=== PATIENT | male | born 1955 | race Caucasian/White ===

== ENCOUNTER 2019-08-20 12:36 | Outpatient (CLI) | payer MEDICARE, OTHER, SELFPAY ==
--- NOTE | 2019-08-20 12:52 | XR_ITS ---
WS: [id number] KNEE RIGHT TECHNIQUE: 3 views of the right knee CLINICAL INFORMATION: PAIN IN RT KNEE COMPARISON: None. FINDINGS: Right knee is normal in appearance. No evidence of acute fracture dislocation. Small suprapatellar ef fusion. Patella is normal. XR/XR knee RT 3V* [id number] IMPRESSION: Small suprapatellar effusion. No acute fractures.
== END 2019-08-20 12:37 | disposition home or self-care (01) ==
LOC: RADOUTREAD 12:42
PROVIDERS: Family Provider Family Medicine; PCP Family Medicine; Visit Provider Nurse Practitioner Family
DX: M25.561 Pain in right knee (principal); M25.461 Effusion, right knee
CPT/HCPCS: 73562

== ENCOUNTER 2020-02-09 14:12 | Outpatient (CLI) | payer MEDICARE, SELFPAY ==
--- NOTE | 2020-02-09 14:16 | XR_ITS ---
WS: [id number] CERVICAL SPINE TECHNIQUE: 3 views of the cervical spine CLINICAL INFORMATION: FALL COMPARISON: None. FINDINGS: Straightening of the normal cervical lordosis with slight reversal. Anterior fusion mass C4-C6 appear s solid. Slight anterolisthesis C3 on C4. Normal C1-2 articulation. XR/XR cervical spine 3V* [id number] IMPRESSION: Straightening of the normal cervical lordosis with solid-appearing anterior fus ion mass C4-C6.
== END 2020-02-09 14:13 | disposition home or self-care (01) ==
LOC: RADWPI 14:15
PROVIDERS: Family Provider Family Medicine; PCP Family Medicine; Visit Provider Nurse Practitioner Family
DX: Z98.1 Arthrodesis status (principal); W19.XXXA Unspecified fall, initial encounter
CPT/HCPCS: 72040

== ENCOUNTER 2020-04-29 04:43 | Emergency (ER) | payer MEDICARE, SELFPAY ==
[2020-04-29] VITALS (10 sets, daily range): BP systolic 117–135; BP diastolic 66–87; PULSE 43–65; RESP 10–17; TEMP 36.6; O2SAT 95–99; BMI 32.1
--- NOTE | 2020-04-29 04:45 | XRR_ITS ---
PROCEDURE INFORMATION: Exam: XR Chest, 1 View Exam date and time: 04/29/2020 4:49 AM Age: 64 years old Clinical indication: Chest pain; Additional info: Chest pain x 1 hour TECHNIQUE: Imaging protocol: XR of the chest Views: 1 view. COMPARISON: CT chest wo con [id number] 03/19/2019 10:07 AM FINDINGS: Tubes, catheters and devices: Neurostimulator wires project on the lower thoracic spine. Lungs: There is minimal fibrosis in the left costophrenic angle but otherwise lungs are clear.. No consolidation. Pleural space: Unremarkable. No pleural effusion. No pneumothorax. Heart/Mediastinum: Unremarkable. No cardiomegaly. Bones/joints: Unremarkable. XR/XR chest 1V portable [id number] IMPRESSION: No acute abnormality.
--- NOTE | 2020-04-29 04:45 | ECG_ITS ---
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 Measurements Intervals [place] Rate: 62 P: 51 VA: 180 QRS: 7 QRSD: 102 T: 10 QT: 399 QTc: 407 Interpretive Statements SINUS RHYTHM Compared to ECG 07/17/2014 15:23:39 No significant changes Electronically Signed On 04-29-2020 20:28:40 CDT by Roberto Carlos Maier M.D. [id number]
--- NOTE | 2020-04-29 04:59 | ED_ITS ---
Documented by User: Frantz Mendosa MD 04/29/20 05:51 HPI - Chest Pain General: Chief Complaint: Abdominal Pain Stated Complaint: cp Time Seen by Provider: 04/29/20 04:46 Source: patient Mode of arrival: ambulatory Limitations: no limitations History of Present Illness: HPI narrative: 64-year-old male states that he woke up 1 hour ago with sharp left-sided chest pain. States pain is very sharp in nature and seems to be worse with movement. He took pain pill at home states the pain is improving and is currently a 3 out of 10. Denies any vomiting or diarrhea. Denies any shortness of breath. Patient denies any fever. Denies any recent injury. MD complaint: chest pain Associated symptoms: Deny abdominal pain, dyspnea, fever(s), nausea or vomiting Review of Systems Const: Denies: fever(s), chills, body aches or change in appetite Eyes: Denies: blurry vision or eye discomfort ENMT: Denies: throat pain or dental pain Card: Reports: chest pain Resp: Denies: dyspnea GI: Denies: abdominal pain, nausea, vomiting or diarrhea : Denies: dysuria Musc: Denies: neck pain or back pain Skin/Breast: Denies: rash Neuro: Denies: headache(s) Psych: Denies: depression Kieran/Lymph: Denies: easy bruising All/Imm: Denies: urticaria PFSH ED PFSH: Family History (Updated 07/29/19 @ 09:59 by Mckayla Castillo LPN) Father CAD (coronary artery disease) Osteoarthritis Mother Cancer pancreatic Osteoarthritis Social History (Updated 07/29/19 @ 09:59 by Mckayla Castillo LPN) Smoking and tobacco status: former smoker Alcohol intake: never Physical Exam Const: COMMON NORMALS: no acute distress, patient oriented x3 and healthy appearing HENMT: COMMON NORMALS: normocephalic and atraumatic HEAD & SCALP: normocephalic and atraumatic Eye: COMMON NORMALS: Equal, round and reactive pupils present and EOMs intact bilaterally PUPIL: Yes Equal, round and reactive pupils present Neck/C-Spine: COMMON NORMALS: full ROM and supple Chest: COMMONS NORMALS: normal inspection of the chest and normal palpation of entire chest wall Resp: COMMON NORMALS: normal respiratory effort, No retractions, No use of accessory muscles and clear to auscultation bilaterally AUSCULTATION: clear to auscultation bilaterally Cardio: COMMON NORMALS: regular rate, regular rhythm and No murmurs present (Cardio) RATE: regular rate RHYTHM: regular rhythm GI: COMMON NORMALS: Normal to inspection, nondistended, normoactive bowel sounds present, Soft to palpation, non-tender and no masses PALPATION: Yes Soft to palpation Extremity: COMMON NORMALS: normal to inspection and full ROM Neuro: COMMON NORMALS: patient oriented x3, moves all extremities and no focal motor deficits Psych: COMMON NORMALS: mental status grossly normal, Normal thought process present and cooperative THOUGHT PROCESS: Normal thought process present Skin: COMMON NORMALS: no rashes or lesions noted and no wounds GENERAL SKIN EXAM: no rashes or lesions noted Course Vital Signs: Vital signs: Vital Signs Temperature 97.9 F 04/29/20 04:49 Pulse Rate 46 L 04/29/20 08:00 Respiratory Rate 15 04/29/20 08:00 Blood Pressure 131/66 04/29/20 08:00 Pulse Oximetry 99 04/29/20 08:00 MDM - Chest Pain MDM Narrative: Medical decision making narrative: 64-year-old male presents here with left-sided chest pain. Will get troponins, D-dimer and EKG. Patient's chest x-ray here is negative. Initial EKG is negative as well. Patient's care turned over to Dr. Roger at this time. Lab Data: Labs: Lab Results 04/29/20 04/29/20 04/29/20 Range/Units 05:05 05:05 05:05 WBC 4.2 (4.0-10.0) 10^3/ uL RBC 4.80 (4.1-5.3) 10^6/u L Hgb 14.5 (11.7-16.6) g/dL Hct 42.9 (42.0-52.0) % MCV 89.4 (80-94) fL MCH 30.2 (28.0-34.0) pg MCHC 33.8 (30.0-36.0) g/dL RDW 12.4 (12.1-15.1) % Plt Count 165 (130-400) 10^3/c mm MPV 10.0 (7.4-10.4) fL Neut % (Auto) 32.1 % Lymph % (Auto) 50.0 % [place] % (Auto) 12.4 % Eos % (Auto) 3.8 % Baso % (Auto) 1.7 % Neut # (Auto) 1.35 L (1.8-7.7) 10^3/u L Lymph # (Auto) 2.1 (0.8-4.8) 10^3/u L [place] # (Auto) 0.5 (0.2-0.9) 10^3/u L Eos # (Auto) 0.2 (0.0-0.8) 10^3/u L Baso # (Auto) 0.1 (0.0-0.1) 10^3/u L Nucleated RBC % (a uto) 0 % Nucleated RBCs # 0.0 /100WBC D-Dimer (0-0.59) ug/mIFE U Sodium 139 (136-145) mmol/L Potassium 4.4 (3.5-5.1) mmol/L Chloride 105 (98-107) mmol/L Carbon Dioxide 25 (22-29) mmol/L Anion Gap 13.4 (5-19) BUN 18 (8-23) mg/dL Creatinine 1.0 (0.7-1.2) mg/dL GFR Calculation 75.7 L (90-130) mL/min Glucose 103 (65-115) mg/dL Calculated Osmolal ity 290 (285-295) mOsm/k g Calcium 9.3 (8.5-10.5) mg/dL Total Bilirubin 0.6 (0.15-1.2) mg/dL AST 37 (0-40) U/L ALT 41 (0-41) U/L Alkaline Phosphata se 97 (40-130) IU/L Troponin T Baselin e 13 (0-15) ng/L Troponin T 120 Min [place] (0-15) ng/L Delta Troponin T (0-10) ABS# Total Protein 6.2 L (6.6-8.7) g/dL Albumin 4.4 (3.5-5.2) g/dL Globulin 1.8 (1.3-4.6) g/dL Lipase 41 (13-60) U/L Urine Color (Yellow) Urine Appearance (CLEAR) Urine pH (5-7) Ur Specific Gravit y (1.005-1.030) Urine Protein (Negative) Urine Glucose (UA) (Normal) Urine Ketones (Negative) Urine Blood (Negative) Urine Nitrate (Negative) Urine Bilirubin (Negative) Urine Urobilinogen (Negative) mg/dL Ur Leukocyte Dalila ase (Negative) 04/29/20 04/29/20 04/29/20 Range/Units 05:05 06:51 07:24 WBC (4.0-10.0) 10^3/ uL RBC (4.1-5.3) 10^6/u L Hgb (11.7-16.6) g/dL Hct (42.0-52.0) % MCV (80-94) fL MCH (28.0-34.0) pg MCHC (30.0-36.0) g/dL RDW (12.1-15.1) % Plt Count (130-400) 10^3/c mm MPV (7.4-10.4) fL Neut % (Auto) % Lymph % (Auto) % [place] % (Auto) % Eos % (Auto) % Baso % (Auto) % Neut # (Auto) (1.8-7.7) 10^3/u L Lymph # (Auto) (0.8-4.8) 10^3/u L [place] # (Auto) (0.2-0.9) 10^3/u L Eos # (Auto) (0.0-0.8) 10^3/u L Baso # (Auto) (0.0-0.1) 10^3/u L Nucleated RBC % (a uto) % Nucleated RBCs # /100WBC D-Dimer <= 0.27 (0-0.59) ug/mIFE U Sodium (136-145) mmol/L Potassium (3.5-5.1) mmol/L Chloride (98-107) mmol/L Carbon Dioxide (22-29) mmol/L Anion Gap (5-19) BUN (8-23) mg/dL Creatinine (0.7-1.2) mg/dL GFR Calculation (90-130) mL/min Glucose (65-115) mg/dL Calculated Osmolal ity (285-295) mOsm/k g Calcium (8.5-10.5) mg/dL Total Bilirubin (0.15-1.2) mg/dL AST (0-40) U/L ALT (0-41) U/L Alkaline Phosphata se (40-130) IU/L Troponin T Baselin e (0-15) ng/L Troponin T 120 Min [place] 12.81 (0-15) ng/L Delta Troponin T -0.19 L (0-10) ABS# Total Protein (6.6-8.7) g/dL Albumin (3.5-5.2) g/dL Globulin (1.3-4.6) g/dL Lipase (13-60) U/L Urine Color Yellow (Yellow) Urine Appearance Clear (CLEAR) Urine pH 5.0 (5-7) Ur Specific Gravit y 1.010 (1.005-1.030) Urine Protein Neg (Negative) Urine Glucose (UA) Norm (Normal) Urine Ketones Negative (Negative) Urine Blood Neg (Negative) Urine Nitrate Negative (Negative) Urine Bilirubin Neg (Negative) Urine Urobilinogen Norm (Negative) mg/dL Ur Leukocyte Dalila ase Negative (Negative) Imaging Data^: CXR: Attestation: I personally reviewed and interpreted this imaging study as follows: My impression: no acute abnormality EKG Data^: EKG 1: Attestation: I personally reviewed and interpreted this EKG as follows: EKG interpretation date: 04/29/20 EKG interpretation time: 04:59 Interpretation: nsr hr [address] or t wave abnormalities qrs 12 qtc 404 Discharge Plan Discharge Patient Disposition: Home Clinical Impression: Chest pain Qualifiers: Chest pain type: unspecified Qualified Code(s): R07.9 - Chest pain, unspecified Condition: Stable Prescriptions: New naproxen 250 mg tablet 500 mg PO BID PRN (Reason: pain) Qty: 20 RF: 0 No Action hydrocodone-acetaminophen 10-325 mg tablet 1 tab PO Q8H PRNRF: 0 celecoxib [Celebrex] 100 mg capsule 100 mg PO BID RF: 0 gabapentin 800 mg tablet 800 mg PO TID RF: 0 simvastatin 40 mg tablet 40 mg PO QDAY RF: 0 metformin 500 mg tablet 500 mg PO QDAY RF: 0 furosemide [Lasix] 20 mg tablet 10 mg PO QAM RF: 0 potassium chloride 10 mEq capsule, extended release 10 meq PO BID RF: 0 albuterol sulfate [ProAir HFA] 90 mcg/actuation HFA aerosol inhaler 2 puff INHALATION Q6H PRNRF: 0 metoprolol tartrate 50 mg tablet 50 mg PO BID RF: 0 fenofibrate nanocrystallized [Tricor] 145 mg tablet 145 mg PO QDAY RF: 0 nitroglycerin [Nitrostat] 0.4 mg tablet, sublingual 0.4 mg SUBLINGUAL Q5M PRNRF: 0 aspirin 81 mg tablet,chewable 81 mg PO QDAY RF: 0 duloxetine 60 mg capsule,delayed release(DR/EC) 60 mg PO QDAY RF: 0 diphenhydramine HCl 50 mg capsule 50 mg PO Q6H PRNRF: 0 cinnamon bark 500 mg capsule 500 mg PO QDAY RF: 0 Natural Herbal Diuretic Tablet PO QDAY RF: 0 Discharge Orders: Discharge Order (Routine); Ordered 04/29/20 Ordered By: Jesika Zuniga Referrals: Kishore Altamirano MD [Primary Care Provider] - 1-3 days Discharge Diet: Advance as tolerated Discharge Activity: Increase activity as tolerated Patient Instructions: Chest Pain (ED) Activity Restrictions/Additional Instructions: Please return to the ER immediately for any of the signs or symptoms listed on your discharge instruction sheets, worsening/changing of your symptoms, you are not getting better as quickly as expected, or for ANY other cause or concerns. I have recommended and offered to admit you to the hospital for further evaluation and care to definitively rule out your heart as a cause for your pain but you have declined. Of course any heart problem can be life-threatening so if you change your mind, your symptoms return, you become short of breath with exertion or develop pain at rest, you become sweaty for no reason or you simply change her mind you are more than welcome to return here to the ER at any time for further evaluation and care. The hospitalist case management department will contact you about a follow-up appointment with Dr. Altamirano and for an outpatient stress test. Take the medications I have given you for pain and stop your celecoxib until your pain has resolved and when she has stopped taking the medicine I have given you you may resume your celecoxib. Stand Alone Forms: Work/School Release Sign Out Sign Out Data: Patient Sign Out occurred on 04/29/20 at 06:11. Patient's care was discussed, and care was transferred from to Jesika Zuniga. Coding Level of Care Code ED Border Guard for Chg Fwd Exam Comprehensive Documented by User: Jesika Zuniga 04/29/20 08:16 HPI - Chest Pain General: Chief Complaint: Abdominal Pain Stated Complaint: cp Time Seen by Provider: 04/29/20 04:46 PFSH ED PFSH: Family History (Updated 07/29/19 @ 09:59 by Mckayla Castillo LPN) Father CAD (coronary artery disease) Osteoarthritis Mother Cancer pancreatic Osteoarthritis Social History (Updated 07/29/19 @ 09:59 by Mckayla Castillo LPN) Smoking and tobacco status: former smoker Alcohol intake: never Course Vital Signs: Vital signs: Vital Signs Temperature 97.9 F 04/29/20 04:49 Pulse Rate 46 L 04/29/20 08:00 Respiratory Rate 15 04/29/20 08:00 Blood Pressure 131/66 04/29/20 08:00 Pulse Oximetry 99 04/29/20 08:00 MDM - Chest Pain MDM Narrative: Medical decision making narrative: 0630 -Case inherited by me at change of shift from Dr. Mendosa. Please see his note for his history, p hysical exam and medical decision-making notes. Patient states that he has had intermittent sharp left-sided chest pain for about 1 week. Pain is felt in the left upper quadrant and left lower anterior and lateral chest. He says the pain is elicited by movements and in certain position she will have this grabbing type pain that radiates around to his left shoulder blade. He states this feels like a sharp pain that lasts anywhere from 2 minutes up to 10 minutes. Eunice's pain was more intense and lasted approximately 30 minutes. He is unaware of any alleviating factors other than just rest and with that the pain will resolve. He denies any chest pressure, tightness, nausea vomiting, diaphoresis or shortness of breath. He denies any cough or fever. Patient states he has had similar pains in the past but they have always resolved and not been as frequent as it has been in the past week. Patient has a history of hypertension, hyperlipidemia, diabetes, osteoarthritis and chronic low back pain. Currently patient has no pain. On exam the patient has a normal neurologic exam. His heart has a regular rate and rhythm by auscultation without murmur, gallop, rub, click or thrill. Is chest is not tender to palpation. His lungs are clear to auscultation bilaterally without wheeze or rhonchi. Abdomen is soft nontender without mass organomegaly. There is no CVA tenderness. His first EKG has been performed and is normal to second EKG is unchanged and normal. Chest x-ray is unremarkable. His lab work is unremarkable including a normal initial troponin. CT of the chest/abdomen pelvis is pending at this time. Per my calculation the patient has a HEART Score of 3 at this time. 0813 -patient's repeat troponin is still within normal range and has gone down. He is no longer having any chest discomfort. I again shared with him his risk of this being his heart but he declines admission. He does not feel as though this is his heart but something along his rib which I tend to agree with him. Nonetheless I still explained to him the possibilities of a heart problem and the risks of a possible bad outcome or even if this is missed but he still declines and wants to go home. He has rescinded his mind and decided that he would rather follow-up as an outpatient. He does understand he can return here anytime should he change his mind. At this time he is ready for discharge. Lab Data: Attestation: I reviewed the patient's lab results. Labs: Lab Results 04/29/20 04/29/20 04/29/20 Range/Units 05:05 05:05 05:05 WBC 4.2 (4.0-10.0) 10^3/ uL RBC 4.80 (4.1-5.3) 10^6/u L Hgb 14.5 (11.7-16.6) g/dL Hct 42.9 (42.0-52.0) % MCV 89.4 (80-94) fL MCH 30.2 (28.0-34.0) pg MCHC 33.8 (30.0-36.0) g/dL RDW 12.4 (12.1-15.1) % Plt Count 165 (130-400) 10^3/c mm MPV 10.0 (7.4-10.4) fL Neut % (Auto) 32.1 % Lymph % (Auto) 50.0 % [place] % (Auto) 12.4 % Eos % (Auto) 3.8 % Baso % (Auto) 1.7 % Neut # (Auto) 1.35 L (1.8-7.7) 10^3/u L Lymph # (Auto) 2.1 (0.8-4.8) 10^3/u L [place] # (Auto) 0.5 (0.2-0.9) 10^3/u L Eos # (Auto) 0.2 (0.0-0.8) 10^3/u L Baso # (Auto) 0.1 (0.0-0.1) 10^3/u L Nucleated RBC % (a uto) 0 % Nucleated RBCs # 0.0 /100WBC D-Dimer (0-0.59) ug/mIFE U Sodium 139 (136-145) mmol/L Potassium 4.4 (3.5-5.1) mmol/L Chloride 105 (98-107) mmol/L Carbon Dioxide 25 (22-29) mmol/L Anion Gap 13.4 (5-19) BUN 18 (8-23) mg/dL Creatinine 1.0 (0.7-1.2) mg/dL GFR Calculation 75.7 L (90-130) mL/min Glucose 103 (65-115) mg/dL Calculated Osmolal ity 290 (285-295) mOsm/k g Calcium 9.3 (8.5-10.5) mg/dL Total Bilirubin 0.6 (0.15-1.2) mg/dL AST 37 (0-40) U/L ALT 41 (0-41) U/L Alkaline Phosphata se 97 (40-130) IU/L Troponin T Baselin e 13 (0-15) ng/L Troponin T 120 Min [place] (0-15) ng/L Delta Troponin T (0-10) ABS# Total Protein 6.2 L (6.6-8.7) g/dL Albumin 4.4 (3.5-5.2) g/dL Globulin 1.8 (1.3-4.6) g/dL Lipase 41 (13-60) U/L Urine Color (Yellow) Urine Appearance (CLEAR) Urine pH (5-7) Ur Specific Gravit y (1.005-1.030) Urine Protein (Negative) Urine Glucose (UA) (Normal) Urine Ketones (Negative) Urine Blood (Negative) Urine Nitrate (Negative) Urine Bilirubin (Negative) Urine Urobilinogen (Negative) mg/dL Ur Leukocyte Dalila ase (Negative) 04/29/20 04/29/20 04/29/20 Range/Units 05:05 06:51 07:24 WBC (4.0-10.0) 10^3/ uL RBC (4.1-5.3) 10^6/u L Hgb (11.7-16.6) g/dL Hct (42.0-52.0) % MCV (80-94) fL MCH (28.0-34.0) pg MCHC (30.0-36.0) g/dL RDW (12.1-15.1) % Plt Count (130-400) 10^3/c mm MPV (7.4-10.4) fL Neut % (Auto) % Lymph % (Auto) % [place] % (Auto) % Eos % (Auto) % Baso % (Auto) % Neut # (Auto) (1.8-7.7) 10^3/u L Lymph # (Auto) (0.8-4.8) 10^3/u L [place] # (Auto) (0.2-0.9) 10^3/u L Eos # (Auto) (0.0-0.8) 10^3/u L Baso # (Auto) (0.0-0.1) 10^3/u L Nucleated RBC % (a uto) % Nucleated RBCs # /100WBC D-Dimer <= 0.27 (0-0.59) ug/mIFE U Sodium (136-145) mmol/L Potassium (3.5-5.1) mmol/L Chloride (98-107) mmol/L Carbon Dioxide (22-29) mmol/L Anion Gap (5-19) BUN (8-23) mg/dL Creatinine (0.7-1.2) mg/dL GFR Calculation (90-130) mL/min Glucose (65-115) mg/dL Calculated Osmolal ity (285-295) mOsm/k g Calcium (8.5-10.5) mg/dL Total Bilirubin (0.15-1.2) mg/dL AST (0-40) U/L ALT (0-41) U/L Alkaline Phosphata se (40-130) IU/L Troponin T Baselin e (0-15) ng/L Troponin T 120 Min [place] 12.81 (0-15) ng/L Delta Troponin T -0.19 L (0-10) ABS# Total Protein (6.6-8.7) g/dL Albumin (3.5-5.2) g/dL Globulin (1.3-4.6) g/dL Lipase (13-60) U/L Urine Color Yellow (Yellow) Urine Appearance Clear (CLEAR) Urine pH 5.0 (5-7) Ur Specific Gravit y 1.010 (1.005-1.030) Urine Protein Neg (Negative) Urine Glucose (UA) Norm (Normal) Urine Ketones Negative (Negative) Urine Blood Neg (Negative) Urine Nitrate Negative (Negative) Urine Bilirubin Neg (Negative) Urine Urobilinogen Norm (Negative) mg/dL Ur Leukocyte Dalila ase Negative (Negative) Imaging Data^: CTA Chest with Abdomen and Pelvis: Radiologist's impression: [place] [address] CT Scan Report Signed Patient: Giorgio Prado #: [id number] : 7Acct#:[id number] Age/Sex: 64 / MADM Date: 04/29/20 Loc: ERRoom/Bed: Attending Dr: Ordering Provider/Ordering MD: Frantz Mendosa MD Date of Service: 04/29/20 Procedure(s): CT angio chest w abd pel w con Accession Number(s): [id number] Report Number: [id number] PROCEDURE INFORMATION: Exam: CT Angiography Chest With Contrast Exam date and time: 04/29/2020 6:09 AM Age: 64 years old Clinical indication: Abdominal pain; Generalized; Chest pain; Type not specified; Additional info: Cp abd pain TECHNIQUE: Imaging protocol: Computed tomographic angiography of the chest with intravenous contrast. 3D rendering (Not supervised by radiologist): MIP and/or 3D reconstructed images were created by the technologist. Radiation optimization: All CT scans at this facility use at least one of these dose optimization techniques: automated exposure control; mA and/or kV adjustment per patient size (includes targeted exams where dose is matched to clinical indication); or iterative reconstruction. Contrast material: OMNI 350; Contrast volume: 95 ml; Contrast route: INTRAVENOUS (IV); COMPARISON: CT chest [facility] [id number] 03/19/2019 10:07 AM RADIATION DOSE METRICS: Total DLP (mGy-cm): 1879.89 FINDINGS: Tubes, catheters and devices: A neurostimulator wire is seen in the thoracic canal. Pulmonary arteries: Normal. No pulmonary emboli. Aorta: Unremarkable. No aortic aneurysm. No aortic dissection. Lungs: There are a few tiny stable benign granulomas in both lungs. Pleural space: Unremarkable. No pneumothorax. No pleural effusion. Heart: The heart is enlarged. It has increased in size since the previous CT scan. There is no pericardial effusion. Lymph nodes: There are few mildly prominent lymph nodes in the mediastinum. These a were present on old study and have not significantly changed. Small benign calcified lymph nodes are present in the right pulmonary hilum. Bones/joints: Unremarkable. No acute fracture. Soft tissues: Unremarkable. IMPRESSION: 1. Cardiomegaly. The heart size has increased since previous study. 2. No evidence of pulmonary embolus or aortic dissection. 3. Benign granulomatous disease with few benign calcified lymph nodes and stable tiny benign lung granulomas. PROCEDURE INFORMATION: Exam: CT Abdomen And Pelvis With Contrast Exam date and time: 04/29/2020 6:09 AM Age: 64 years old Clinical indication: Abdominal pain; Generalized; Chest pain; Type not specified; Additional info: Cp abd pain TECHNIQUE: Imaging protocol: Computed tomography of the abdomen and pelvis with intravenous contrast. Radiation optimization: All CT scans at this facility use at least one of these dose optimization techniques: automated exposure control; mA and/or kV adjustment per patient size (includes targeted exams where dose is matched to clinical indication); or iterative reconstruction. Contrast material: OMNI 350; Contrast volume: 95 ml; Contrast route: INTRAVENOUS (IV); COMPARISON: CT chest [facility] [id number] 03/19/2019 10:07 AM RADIATION DOSE METRICS: Total DLP (mGy-cm): 1874.89 FINDINGS: Liver: There are few tiny benign cysts in the right lobe the liver. Otherwise liver is unremarkable with no other suspicious mass. Gallbladder and bile ducts: Normal. No calcified stones. No ductal dilation. Pancreas: Normal. No ductal dilation. Spleen: There is a tiny benign calcified granuloma in the spleen which is otherwise normal. Adrenals: Normal. No mass. Kidneys and ureters: Normal. No hydronephrosis. Stomach and bowel: There is sigmoid diverticulosis but no evidence of acute diverticulitis. There are few loops of mildly prominent fluid-filled mid small bowel which might indicate a reflex ileus. There is no other significant bowel dilatation or mural thickening. Appendix: No evidence of appendicitis. Intraperitoneal space: Unremarkable. No free air. No significant fluid collection. Vasculature: There is atherosclerotic calcification of the aorta but there is no evidence of aneurysm or dissection. Lymph nodes: Unremarkable. No enlarged lymph nodes. Urinary bladder: Unremarkable as visualized. Reproductive: Unremarkable as visualized. Bones/joints: The patient has undergone lower lumbar laminectomy and fusion. Soft tissues: Unremarkable. CT/CT angio chest w abd pel w con IMPRESSION: 1. Prominent sigmoid diverticulosis but no evidence of diverticulitis. 2. Mildly prominent fluid-filled loops of mid small bowel which is nonspecific but could be due to reflex ileus or enteritis. 3. No other acute abnormalities are seen in the abdomen and pelvis. Radiation Dose CTDIVOL = (mGy): DLP = 1879.89~1874.89 (mGy-cm) Dictated By:Leoncio Harrington Signed By:Mabel Harrington Date/Time:04/29/20705 DD/ 4 EKG Data^: EKG 2: Attestation: I personally reviewed and interpreted this EKG as follows: EKG interpretation date: 04/29/20 EKG interpretation time: 06:28 Interpretation: Normal sinus rhythm at 54 beats a minute, left axis deviation, no blocks, normal intervals, no acute ST-T wave changes. Unchanged from previous. Discharge Plan Discharge Patient Disposition: Home Clinical Impression: Chest pain Qualifiers: Chest pain type: unspecified Qualified Code(s): R07.9 - Chest pain, unspecified Condition: Stable Prescriptions: New naproxen 250 mg tablet 500 mg PO BID PRN (Reason: pain) Qty: 20 RF: 0 No Action hydrocodone-acetaminophen 10-325 mg tablet 1 tab PO Q8H PRNRF: 0 celecoxib [Celebrex] 100 mg capsule 100 mg PO BID RF: 0 gabapentin 800 mg tablet 800 mg PO TID RF: 0 simvastatin 40 mg tablet 40 mg PO QDAY RF: 0 metformin 500 mg tablet 500 mg PO QDAY RF: 0 furosemide [Lasix] 20 mg tablet 10 mg PO QAM RF: 0 potassium chloride 10 mEq capsule, extended release 10 meq PO BID RF: 0 albuterol sulfate [ProAir HFA] 90 mcg/actuation HFA aerosol inhaler 2 puff INHALATION Q6H PRNRF: 0 metoprolol tartrate 50 mg tablet 50 mg PO BID RF: 0 fenofibrate nanocrystallized [Tricor] 145 mg tablet 145 mg PO QDAY RF: 0 nitroglycerin [Nitrostat] 0.4 mg tablet, sublingual 0.4 mg SUBLINGUAL Q5M PRNRF: 0 aspirin 81 mg tablet,chewable 81 mg PO QDAY RF: 0 duloxetine 60 mg capsule,delayed release(DR/EC) 60 mg PO QDAY RF: 0 diphenhydramine HCl 50 mg capsule 50 mg PO Q6H PRNRF: 0 cinnamon bark 500 mg capsule 500 mg PO QDAY RF: 0 Natural Herbal Diuretic Tablet PO QDAY RF: 0 Discharge Orders: Discharge Order (Routine); Ordered 04/29/20 Ordered By: Jesika Zuniga Referrals: Kishore Altamirano MD [Primary Care Provider] - 1-3 days Discharge Diet: Advance as tolerated Discharge Activity: Increase activity as tolerated Patient Instructions: Chest Pain (ED) Activity Restrictions/Additional Instructions: Please return to the ER immediately for any of the signs or symptoms listed on your discharge instruction sheets, worsening/changing of your symptoms, you are not getting better as quickly as expected, or for ANY other cause or concerns. I have recommended and offered to admit you to the hospital for further evaluation and care to definitively rule out your heart as a cause for your pain but you have declined. Of course any heart problem can be life-threatening so if you change your mind, your symptoms return, you become short of breath with exertion or develop pain at rest, you become sweaty for no reason or you simply change her mind you are more than welcome to return here to the ER at any time for further evaluation and care. The hospitalist case management department will contact you about a follow-up appointment with Dr. Altamirano and for an outpatient stress test. Take the medications I have given you for pain and stop your celecoxib until your pain has resolved and when she has stopped taking the medicine I have given you you may resume your celecoxib. Stand Alone Forms: Work/School Release Sign Out Sign Out Data: Patient Sign Out occurred on 04/29/20 at 06:11. Patient's care was discussed, and care was transferred from to Jesika Zuniga. Coding Level of Care Code ED Border Guard for Jamila Fwd Exam Comprehensive
[2020-04-29] MEDS: ondansetron 2 mg/ML SDV 2 mL 4 MG IVP (05:12)
[2020-04-29] MEDS: morphine 4 mg/mL SDV 1 mL IVP (05:13)
[2020-04-29] MEDS: aspirin 81 mg Chew Tablet 324 MG PO (05:13)
[2020-04-29 05:18] LABS: Basophils # 0.1 10^3/uL (0.0-0.1); Basophils % 1.7 %; Eosinophils # 0.2 10^3/uL (0.0-0.8); Eosinophils % 3.8 %; Hematocrit 42.9 % (42.0-52.0); Hemoglobin 14.5 g/dL (11.7-16.6); Lymphocytes # 2.1 10^3/uL (0.8-4.8); Mean Corpuscular HGB Conc 33.8 g/dL (30.0-36.0); Mean Corpuscular Hemoglobin 30.2 pg (28.0-34.0); Mean Corpuscular Volume 89.4 fL (80-94); Monocytes # 0.5 10^3/uL (0.2-0.9); Monocytes % 12.4 %; Neutrophils # 1.35 10^3/uL (1.8-7.7); Neutrophils % 32.1 %; Nucleated Red Blood Cells % 0 %; Platelet Count 165 10^3/cmm (130-400); Red Cell Distribution Width 12.4 % (12.1-15.1); White Blood Count 4.2 10^3/uL (4.0-10.0)
[2020-04-29 05:36] LABS: D Dimer <= 0.27 ug/mIFEU (0-0.59)
[2020-04-29 05:43] LABS: Alanine Aminotransferase 41 U/L (0-41); Albumin Level 4.4 g/dL (3.5-5.2); Alkaline Phosphatase 97 IU/L (40-130); Aspartate Amino Transferase 37 U/L (0-40); Blood Urea Nitrogen 18 mg/dL (8-23); Calcium 9.3 mg/dL (8.5-10.5); Carbon Dioxide 25 mmol/L (22-29); Chloride 105 mmol/L (98-107); Globulin 1.8 g/dL (1.3-4.6); Glomerular Filtration Rate 75.7 mL/min (90-130); Glucose 103 mg/dL (65-115); Lipase 41 U/L (13-60); Osmolality Calculated 290 mOsm/kg (285-295); Sodium 139 mmol/L (136-145); Total Bilirubin 0.6 mg/dL (0.15-1.2); Total Protein 6.2 g/dL (6.6-8.7)
[2020-04-29 05:44] LABS: Troponin(5th) Baseline 13 ng/L (0-15)
[2020-04-29 05:45] LABS: Anion Gap 13.4 (5-19); Potassium 4.4 mmol/L (3.5-5.1)
--- NOTE | 2020-04-29 05:51 | CTR_ITS ---
PROCEDURE INFORMATION: Exam: CT Angiography Chest With Contrast Exam date and time: 04/29/2020 6:09 AM Age: 64 years old Clinical indication: Abdominal pain; Generalized; Chest pain; Type not specified; Additional info: Cp abd pain TECHNIQUE: Imaging protocol: Computed tomographic angiography of the chest with intravenous contrast. 3D rendering (Not supervised by radiologist): MIP and/or 3D reconstructed images were created by the technologist. Radiation optimization: All CT scans at this facility use at least one of these dose optimization techniques: automated exposure control; mA and/or kV adjustment per patient size (includes targeted exams where dose is matched to clinical indication); or iterative reconstruction. Contrast material: OMNI 350; Contrast volume: 95 ml; Contrast route: INTRAVENOUS (IV); COMPARISON: CT chest wo con [id number] 03/19/2019 10:07 AM RADIATION DOSE METRICS: Total DLP (mGy-cm): 1879.89 FINDINGS: Tubes, catheters and devices: A neurostimulator wire is seen in the thoracic canal. Pulmonary arteries: Normal. No pulmonary emboli. Aorta: Unremarkable. No aortic aneurysm. No aortic dissection. Lungs: There are a few tiny stable benign granulomas in both lungs. Pleural space: Unremarkable. No pneumothorax. No pleural effusion. Heart: The heart is enlarged. It has increased in size since the previous CT scan. There is no pericardial effusion. Lymph nodes: There are few mildly prominent lymph nodes in the mediastinum. These a were present on old study and have not significantly changed. Small benign calcified lymph nodes are present in the right pulmonary hilum. Bones/joints: Unremarkable. No acute fracture. Soft tissues: Unremarkable. IMPRESSION: 1. Cardiomegaly. The heart size has increased since previous study. 2. No evidence of pulmonary embolus or aortic dissection. 3. Benign granulomatous disease with few benign calcified lymph nodes and stable tiny benign lung granulomas. PROCEDURE INFORMATION: Exam: CT Abdomen And Pelvis With Contrast Exam date and time: 04/29/2020 6:09 AM Age: 64 years old Clinical indication: Abdominal pain; Generalized; Chest pain; Type not specified; Additional info: Cp abd pain TECHNIQUE: Imaging protocol: Computed tomography of the abdomen and pelvis with intravenous contrast. Radiation optimization: All CT scans at this facility use at least one of these dose optimization techniques: automated exposure control; mA and/or kV adjustment per patient size (includes targeted exams where dose is matched to clinical indication); or iterative reconstruction. Contrast material: OMNI 350; Contrast volume: 95 ml; Contrast route: INTRAVENOUS (IV); COMPARISON: CT chest wo con [id number] 03/19/2019 10:07 AM RADIATION DOSE METRICS: Total DLP (mGy-cm): 1874.89 FINDINGS: Liver: There are few tiny benign cysts in the right lobe the liver. Otherwise liver is unremarkable with no other suspicious mass. Gallbladder and bile ducts: Normal. No calcified stones. No ductal dilation. Pancreas: Normal. No ductal dilation. Spleen: There is a tiny benign calcified granuloma in the spleen which is otherwise normal. Adrenals: Normal. No mass. Kidneys and ureters: Normal. No hydronephrosis. Stomach and bowel: There is sigmoid diverticulosis but no evidence of acute diverticulitis. There are few loops of mildly prominent fluid-filled mid small bowel which might indicate a reflex ileus. There is no other significant bowel dilatation or mural thickening. Appendix: No evidence of appendicitis. Intraperitoneal space: Unremarkable. No free air. No significant fluid collection. Vasculature: There is atherosclerotic calcification of the aorta but there is no evidence of aneurysm or dissection. Lymph nodes: Unremarkable. No enlarged lymph nodes. Urinary bladder: Unremarkable as visualized. Reproductive: Unremarkable as visualized. Bones/joints: The patient has undergone lower lumbar laminectomy and fusion. Soft tissues: Unremarkable. CT/CT angio chest w abd pel w con IMPRESSION: 1. Prominent sigmoid diverticulosis but no evidence of diverticulitis. 2. Mildly prominent fluid-filled loops of mid small bowel which is nonspecific but could be due to reflex ileus or enteritis. 3. No other acute abnormalities are seen in the abdomen and pelvis. Radiation Dose CTDIVOL = (mGy): DLP = 1879.89~1874.89 (mGy-cm)
[2020-04-29] MEDS: iohexol 350 mg/mL 100 mL Btl IV (06:21)
--- NOTE | 2020-04-29 06:45 | ECG_ITS ---
[facility] Test Date: 2020-04-29 Pat Name: Giorgio Prado Department: Room: Gender: Male Bologna Lacer: : 1955 Requested By: Frantz Mendosa Order Number: [id number] Souleymane MD: Roberto Carlos Maier M.D. Measurements Intervals [place] Rate: 54 P: 45 NC: 184 QRS: 3 QRSD: 110 T: 19 QT: 433 QTc: 412 Interpretive Statements SINUS BRADYCARDIA Compared to ECG 04/29/2020 04:59:21 Sinus rhythm no longer present Electronically Signed On 04-29-2020 20:37:15 CDT by Roberto Carlos Maier M.D. [id number]
[2020-04-29] MEDS: sodium chloride 0.9% 1,000 ML 999 ML IV (06:55)
[2020-04-29 07:18] LABS: Add Urine Microscopic? NO
[2020-04-29 07:35] LABS: Bilirubin Urine Neg (Negative); Blood Urine Neg (Negative); Glucose Urine UA Norm (Normal); Ketones Urine Negative (Negative); Leukocyte Esterase Urine Negative (Negative); Nitrate Urine Negative (Negative); Protein Urine Neg (Negative); Urine Appearance Clear (CLEAR); Urine Color Yellow (Yellow); Urobilinogen Urine Norm (Negative)
[2020-04-29] MEDS: ketorolac 30 mg/mL INJ 10 MG IVP (07:47)
[2020-04-29 08:10] LABS: Troponin 5 2HR 12.81 ng/L (0-15)
[2020-04-29 08:14] LABS: Troponin 5 2HR Delta -0.19 ABS# (0-10)
--- NOTE | 2020-04-29 10:33 | DCPLANNER ---
Addendum entered by Mariaelena Durant 05/02/20 12:49: Patient called case consultant stating that he did want the stress test ordered, and he also stated that he sees Adrienne at the [facility] in [place]. integration manager will fax order to centralized scheduling. Original Note: integration manager had message to schedule a follow up appointment for patient for an outpatient stress test and a followup appointment for patient with primary care. integration manager called patient at [phone], case consultant unable to speak with patient at this time. A voicemail was left for patient to return case consultant phone call. integration manager wanted to confirm that patient still wanted to have test, and to confirm who patient sees for primary care.
--- NOTE | 2020-05-05 14:33 | DCPLANNER ---
Patient has a follow up appointment for a stress test scheduled for Wednesday, May 20, 2020 at 11:30. Centralized scheduling will call patient with appointment information.
--- NOTE | 2020-06-08 13:03 | DCPLANNER ---
Patient had an out patient stress test scheduled for 20 - patient did not attend.
== END 2020-04-29 08:20 | disposition home or self-care (01) ==
PROVIDERS: Emergency Medicine; Emergency Provider Emergency Medicine; PCP Family Medicine
DX: R07.9 Chest pain, unspecified (principal); Z79.82 Long term (current) use of aspirin; Z79.84 Long term (current) use of oral hypoglycemic drugs; Z87.891 Personal history of nicotine dependence
CPT/HCPCS: 12345; 71045; 71275; 74177; 80053; 81003; 83690; 84484; 85025; 85378; 93005; 96361; 96374; 96375; 99284; J1885; J2270; J2405; J7030; Q9967

== ENCOUNTER 2020-10-07 07:57 | Outpatient (CLI) | payer MEDICARE, SELFPAY ==
--- NOTE | 2020-10-07 08:05 | CT_ITS ---
WS: [id number] LDCT LUNG CANCER SCREENING TECHNIQUE: Noncontrast CT of the chest with coronal and sagittal reformatted images. CLINICAL INFORMATION: TOBACCO USE COMPARISON: CTA chest April 29, 2020 DLP: 56.17 mGy.cm DIvol: 1.[address] scans at [facility] use at least one of these dose optimization techniques: automat ed exposure control; mA and/or kV adjustment per patient size (includes targeted exams where dose is matched to clinical indication); or iterative reconstruction. FINDINGS: 3 mm noncalcified nodule left lower lobe. A few calcified granulomas. Normal caliber thoracic aorta. Aortic calcification. No mediastinal or hilar lymphadenopathy. Normal GE junction. Adrenal glands are normal. Dorsal lower thoracic spinal stimulator. CT/CT lung screening [id number] IMPRESSION: LUNG-RADS: 2-Benign Appearance or Behavior FOLLOW UP: 12 Month: Continue annual screening with LDCT
== END 2020-10-07 07:58 | disposition home or self-care (01) ==
LOC: RAD 08:03
PROVIDERS: PCP Family Medicine; Visit Provider Nurse Practitioner Family
DX: Z12.2 Encounter for screening for malignant neoplasm of respiratory organs (principal); F17.210 Nicotine dependence, cigarettes, uncomplicated; I70.0 Atherosclerosis of aorta
CPT/HCPCS: 71271

== ENCOUNTER 2021-01-02 10:36 | Outpatient (CLI) | payer MEDICARE, SELFPAY ==
--- NOTE | 2021-01-02 10:55 | CT_ITS ---
WS: [id number] CT HEAD NONCONTRAST HISTORY: ARACHNOID CYST TECHNIQUE: Contiguous axial imaging performed through the brain in 2.5 mm imaging. Bone and soft tiss ue windows. All CT scans at [facility] use at least one of these dose optimization techniq ues: automated exposure control; mA and/or kV adjustment per patient size (includes targeted exams wh ere dose is matched to clinical indication); or iterative reconstruction. DLP: 992.04 mGycm COMPARISON: 07/17/2014 Again noted is a CSF-like fluid collection in the anterior LEFT middle cranial fossa which is stable. There is slight mass effect upon the LEFT temporal lobe. There is additional large CSF collection in the posterior fossa extending across the midline which may be a additional arachnoid cyst. No interv al change. No atrophy or prior infarcts or herniation. Ventricles: Normal size with no hydrocephalus. Paranasal sinuses: As visualized are clear. Mastoid air cells: Well pneumatized. Calvarium and scalp: Skull is intact with no soft tissue edema or swelling. CT/CT head wo con* [id number] IMPRESSION: 1. No acute intracranial hemorrhage. 2. Stable noncontrast head CT since 07/17/2014. 3. Stable LEFT middle cranial fossa arachnoid cyst and CSF collection also the posterior fossa.
== END 2021-01-02 10:37 | disposition home or self-care (01) ==
LOC: RADWPI 10:41
PROVIDERS: PCP Family Medicine; Visit Provider Nurse Practitioner Family
DX: G93.0 Cerebral cysts (principal)
CPT/HCPCS: 70450

== ENCOUNTER 2021-11-11 00:39 | Emergency (ER) | payer MEDICARE, SELFPAY ==
[2021-11-11 00:48] VITALS: BP 157/85; PULSE 80; RESP 18; TEMP 36.9; O2SAT 97; BMI 33.5
[2021-11-11 01:21] VITALS: BP 135/72; PULSE 75; RESP 16; TEMP 36.8; O2SAT 97
--- NOTE | 2021-11-11 01:28 | XRR_ITS ---
PROCEDURE INFORMATION: Exam: XR Complete Acute Abdomen Series Including Chest Exam date and time: 11/11/2021 1:32 AM Age: 66 years old Clinical indication: Prior surgery; Surgery type: Spinal stimulator. Lumbar fusion. ; Patient HX: C/O diarrhea with fever x 3 days. History of diverticulitis. ; Additional info: Diveritculitis TECHNIQUE: Imaging protocol: XR complete acute abdomen series, including 2 or more views of the abdomen and a single view chest. COMPARISON: CR XR chest 1V portable [id number] 04/29/2020 4:58 AM FINDINGS: Tubes, catheters and devices: Spinal cord stimulator leads overlie the thoracic spine. Lungs: Normal. No consolidation. Pleural spaces: Normal. No pleural effusions. No pneumothorax. Heart/Mediastinum: Normal. No cardiomegaly. Gastrointestinal tract: There is a nonspecific but nonobstructive bowel gas pattern. Intraperitoneal space: Normal. No free air. Bones/joints: Intact posterior fusion hardware L4-L5. Soft tissues: Normal. XR/XR acute abdomen series [id number] IMPRESSION: There is a nonspecific but nonobstructive bowel gas pattern.
[2021-11-11] MEDS: sulfamethoxazole-trimeth DS 160-800 mg Tablet 1 TAB PO (01:46)
[2021-11-11] MEDS: ondansetron 2 mg/ML SDV 2 mL 4 MG IVP (01:47)
[2021-11-11] MEDS: sodium chloride 0.9% 1,000 ML 999 ML IV (01:47)
--- NOTE | 2021-11-11 01:50 | ED_ITS ---
Documented by User: DANIA Chavis 11/11/21 02:41 HPI - Nausea/Vomiting/Diarrhea General: Chief complaint: Nausea/Vomiting/Diarrhea Stated complaint: fever, diverticulitis acting up Time Seen by Provider: 11/11/21 01:28 History of Present Illness: 66-year-old male patient comes in today with complaints of diarrhea for the last 3 days. Patient reports everything he eats just goes straight through him. Patient has been using Metamucil with some relief. Patient reports some fever up to 100 degrees. Patient does have a history of diverticulitis and believes this is his problem. Patient did not have any Bactrim left from his last episode so he sought treatment in the emergency department. Patient appears nontoxic. Patient appears in mild to no pain. Associated symtoms: Denies chest pain Review of Systems General: Reports: 10 or more systems reviewed and unremarkable except in HPI and below Const: Reports: fever(s) Card: Denies: chest pain Resp: Denies: dyspnea GI: Reports: diarrhea; Denies: vomiting Musc: Denies: neck pain Skin/Breast: Denies: rash PFSH ED PFSH: Medical History (Updated 11/11/21 @ 01:59 by DANIA Chavis) Asthma CAD (coronary artery disease) History of colon polyps HTN (hypertension) Lumbar and sacral spondylarthritis Seasonal allergies Surgical History (Updated 01/13/21 @ 15:39 by Dejan Lizama MD) H/O coronary angioplasty H/O neck surgery fusion due to 2 separate neck fractures History of back surgery discogram History of colonoscopy with polypectomy History of lumbar surgery L4-L5 laminectomy S/P insertion of spinal cord stimulator Family History (Updated 07/29/19 @ 09:59 by Mckayla Castillo LPN) Father CAD (coronary artery disease) Osteoarthritis Mother Cancer pancreatic Osteoarthritis Social History (Updated 07/29/19 @ 09:59 by Mckayla Castillo LPN) Smoking and tobacco status: never smoked Alcohol intake: never Physical Exam Const: COMMON NORMALS: alert HENMT: COMMON NORMALS: normocephalic HEAD & SCALP: normocephalic THROAT: posterior oropharynx normal Eye: COMMON NORMALS: EOMs intact bilaterally Neck/C-Spine: COMMON NORMALS: full ROM Resp: COMMON NORMALS: normal respiratory effort and clear to auscultation bilaterally AUSCULTATION: clear to auscultation bilaterally Cardio: COMMON NORMALS: regular rate and regular rhythm RATE: regular rate RHYTHM: regular rhythm GI: COMMON NORMALS: Soft to palpation and non-tender AUSCULTATION: Yes Hyperactive bowel sounds present PALPATION: Yes Soft to palpation Back/Pelvis: COMMON NORMALS: thoracic and lumbar spine normal to inspection Neuro: SENSORIUM/ORIENTATION: Yes alert Skin: COMMON NORMALS: no rashes or lesions noted GENERAL SKIN EXAM: no rashes or lesions noted Course Vital Signs: Vital signs: Vital Signs Temperature 98.5 F 11/11/21 02:00 Pulse Rate 67 11/11/21 02:53 Respiratory Rate 16 11/11/21 02:53 Blood Pressure 131/66 11/11/21 02:53 Pulse Oximetry 95 11/11/21 02:53 MDM - Nausea/Vomiting/Diarrhea Medical Decision Making 66-year-old male patient comes in today with complaints of diverticular flare. Patient reports pain in the left lower quadrant of the abdomen which was similar to his previous diverticulitis. She reports diarrhea for the last 3 days. On exam abdomen soft with some light tenderness in the left lower quadrant. Bowel sounds are hyperactive. Skin is warm and dry. Vital signs are normal. Differential diagnosis includes but not limited to diverticulitis, colitis, diarrhea. Patient was given 1 L of IV fluids. Laboratory values were unremarkable. Acute abdomen x-rays noted no free air and no obvious obstruction s. Patient will be continued on Bactrim which he usually takes for his diverticular flares. Patient will follow-up as needed or return to the ER for worsening symptoms. Lab Data : 11/11/21 02:00 11/11/21 02:00 Radiology Impressions Chest/Abdomen X-ray 11/11/21 01:28 IMPRESSION: There is a nonspecific but nonobstructive bowel gas pattern. Laboratory Results WBC 6.2 10^3/uL (4.0-10.0) 11/11/21 02:00 RBC 4.90 10^6/uL (4.1-5.3) 11/11/21 02:00 Hgb 15.2 g/dL (11.7-16.6) 11/11/21 02:00 Hct 43.4 % (42.0-52.0) 11/11/21 02:00 MCV 88.6 fl (80-94) 11/11/21 02:00 MCH 31.0 pg (28.0-34.0) 11/11/21 02:00 MCHC 35.0 g/dL (30.0-36.0) 11/11/21 02:00 RDW 12.6 % (12.1-15.1) 11/11/21 02:00 Plt Count 190 10^3/cmm (130-400) 11/11/21 02:00 MPV 9.8 fL (7.4-10.4) 11/11/21 02:00 Neut % (Auto) 40.4 % 11/11/21 02:00 Lymph % (Auto) 43.0 % 11/11/21 02:00 Frontier % (Auto) 11.9 % 11/11/21 02:00 Eos % (Auto) 2.6 % 11/11/21 02:00 Baso % (Auto) 1.9 % 11/11/21 02:00 Neut # (Auto) 2.51 10^3/uL (1.8-7.7) 11/11/21 02:00 Lymph # (Auto) 2.7 10^3/uL (0.8-4.8) 11/11/21 02:00 Frontier # (Auto) 0.7 10^3/uL (0.2-0.9) 11/11/21 02:00 Eos # (Auto) 0.2 10^3/uL (0.0-0.8) 11/11/21 02:00 Baso # (Auto) 0.1 10^3/uL (0.0-0.1) 11/11/21 02:00 Nucleated RBC % (auto) 0 % 11/11/21 02:00 Nucleated RBCs # 0.0 /100WBC 11/11/21 02:00 Sodium 139 mmol/L (136-145) 11/11/21 02:00 Potassium 3.5 mmol/L (3.5-5.1) 11/11/21 02:00 Chloride 105 mmol/L (98-107) 11/11/21 02:00 Carbon Dioxide 24 mmol/L (22-29) 11/11/21 02:00 Anion Gap 13.5 (5-19) 11/11/21 02:00 BUN 12 mg/dL (8-23) 11/11/21 02:00 Creatinine 0.9 mg/dL (0.7-1.2) 11/11/21 02:00 GFR Calculation 85.0 mL/min (90-130) L 11/11/21 02:00 Glucose 134 mg/dL (65-115) H 11/11/21 02:00 Calculated Osmolality 290 mOsm/kg (285-295) 11/11/21 02:00 Calcium 9.4 mg/dL (8.5-10.5) 11/11/21 02:00 Total Bilirubin 1.0 mg/dL (0.15-1.2) 11/11/21 02:00 AST 32 U/L (0-40) 11/11/21 02:00 ALT 58 U/L (0-41) H 11/11/21 02:00 Alkaline Phosphatase 111 IU/L (40-130) 11/11/21 02:00 Total Protein 6.7 g/dL (6.6-8.7) 11/11/21 02:00 Albumin 4.4 g/dL (3.5-5.2) 11/11/21 02:00 Globulin 2.3 g/dL (1.3-4.6) 11/11/21 02:00 Discharge Plan Discharge Patient Disposition: Home Clinical Impression: Diverticulitis Condition: Stable Prescriptions: New Bactrim DS 800-160 mg tablet 1 tab PO BID 7 Days Qty: 14 0RF No Action hydrocodone-acetaminophen 10-325 mg tablet 1 tab PO Q8H PRN0RF celecoxib [Celebrex] 100 mg capsule 100 mg PO BID 0RF gabapentin 800 mg tablet 800 mg PO TID 0RF simvastatin 40 mg tablet 40 mg PO QDAY 0RF metformin 500 mg tablet 500 mg PO QDAY 0RF furosemide [Lasix] 20 mg tablet 10 mg PO QAM 0RF potassium chloride 10 mEq capsule, extended release 10 meq PO BID 0RF albuterol sulfate [ProAir HFA] 90 mcg/actuation HFA aerosol inhaler 2 puff INHALATION Q6H PRN0RF metoprolol tartrate 50 mg tablet 50 mg PO BID 0RF fenofibrate nanocrystallized [Tricor] 145 mg tablet 145 mg PO QDAY 0RF nitroglycerin [Nitrostat] 0.4 mg tablet, sublingual 0.4 mg SUBLINGUAL Q5M PRN0RF aspirin 81 mg tablet,chewable 81 mg PO QDAY 0RF duloxetine 60 mg capsule,delayed release(DR/EC) 60 mg PO QDAY 0RF diphenhydramine HCl 50 mg capsule 50 mg PO Q6H PRN0RF cinnamon bark 500 mg capsule 500 mg PO QDAY 0RF Natural Herbal Diuretic Tablet PO QDAY 0RF naproxen 250 mg tablet 500 mg PO BID PRN (Reason: pain) Qty: 20 0RF Discharge Orders: Discharge ED (Routine); Ordered 11/11/21 Ordered By: Joao Funez Discharge Diet: Advance as tolerated Discharge Activity: Increase activity as tolerated Patient Instructions: Diverticulitis (ED), Opioid Safety Activity Restrictions/Additional Instructions: Healthy diet. Avoid seeds, legumes, and nuts during diverticular flare. Take antibiotic as directed. Continue with your use of Metamucil. Use Imodium for severe diarrhea. Drink plenty of water. Follow-up with primary care. Return to ER for worsening symptoms such as high fever greater than 100.4, severe abdominal pain, shortness of breath, blood in vomit or stool. Coding Level of Care Code ED Metal Polisher for Chg Fwd Exam Comprehensive Documented by User: Tate Worthington, 11/11/21 15:59 HPI - Nausea/Vomiting/Diarrhea General: Chief complaint: Nausea/Vomiting/Diarrhea Stated complaint: fever, diverticulitis acting up Time Seen by Provider: 11/11/21 01:28 [facility] ED PFS: Medical History (Updated 11/11/21 @ 01:59 by DANIA Chavis) Asthma CAD (coronary artery disease) History of colon polyps HTN (hypertension) Lumbar and sacral spondylarthritis Seasonal allergies Surgical History (Updated 01/13/21 @ 15:39 by Dejan Lizama MD) H/O coronary angioplasty H/O neck surgery fusion due to 2 separate neck fractures History of back surgery discogram History of colonoscopy with polypectomy History of lumbar surgery L4-L5 laminectomy S/P insertion of spinal cord stimulator Family History (Updated 07/29/19 @ 09:59 by Mckayla Castillo LPN) Father CAD (coronary artery disease) Osteoarthritis Mother Cancer pancreatic Osteoarthritis Social History (Updated 07/29/19 @ 09:59 by Mckayla Castillo LPN) Smoking and tobacco status: never smoked Alcohol intake: never Course Vital Signs: Vital signs: Vital Signs Temperature 98.5 F 11/11/21 02:00 Pulse Rate 67 11/11/21 02:53 Respiratory Rate 16 11/11/21 02:53 Blood Pressure 131/66 11/11/21 02:53 Pulse Oximetry 95 11/11/21 02:53 MDM - Nausea/Vomiting/Diarrhea Medical Decision Making 66-year-old male patient comes in today with complaints of diverticular flare. Patient reports pain in the left lower quadrant of the abdomen which was similar to his previous diverticulitis. She reports diarrhea for the last 3 days. On exam abdomen soft with some light tenderness in the left lower quadrant. Bowel sounds are hyperactive. Skin is warm and dry. Vital signs are normal. Differential diagnosis includes but not limited to diverticulitis, colitis, diarrhea. Patient was given 1 L of IV fluids. Laboratory values were unremarkable. Acute abdomen x-rays noted no free air and no obvious obstructions. Patient will be continued on Bactrim which he usually takes for his diverticular flares. Patient will follow-up as needed or return to the ER for worsening symptoms. This patient was originally seen by DANIA Greenberg. I agree with his history, evaluation, and treatment. Lab Data : 11/11/21 02:00 11/11/21 02:00 Radiology Impressions Chest/Abdomen X-ray 11/11/21 01:28 IMPRESSION: There is a nonspecific but nonobstructive bowel gas pattern. Laboratory Results WBC 6.2 10^3/uL (4.0-10.0) 11/11/21 02:00 RBC 4.90 10^6/uL (4.1-5.3) 11/11/21 02:00 Hgb 15.2 g/dL (11.7-16.6) 11/11/21 02:00 Hct 43.4 % (42.0-52.0) 11/11/21 02:00 MCV 88.6 fl (80-94) 11/11/21 02:00 MCH 31.0 pg (28.0-34.0) 11/11/21 02:00 MCHC 35.0 g/dL (30.0-36.0) 11/11/21 02:00 RDW 12.6 % (12.1-15.1) 11/11/21 02:00 Plt Count 190 10^3/cmm (130-400) 11/11/21 02:00 MPV 9.8 fL (7.4-10.4) 11/11/21 02:00 Neut % (Auto) 40.4 % 11/11/21 02:00 Lymph % (Auto) 43.0 % 11/11/21 02:00 Frontier % (Auto) 11.9 % 11/11/21 02:00 Eos % (Auto) 2.6 % 11/11/21 02:00 Baso % (Auto) 1.9 % 11/11/21 02:00 Neut # (Auto) 2.51 10^3/uL (1.8-7.7) 11/11/21 02:00 Lymph # (Auto) 2.7 10^3/uL (0.8-4.8) 11/11/21 02:00 Frontier # (Auto) 0.7 10^3/uL (0.2-0.9) 11/11/21 02:00 Eos # (Auto) 0.2 10^3/uL (0.0-0.8) 11/11/21 02:00 Baso # (Auto) 0.1 10^3/uL (0.0-0.1) 11/11/21 02:00 Nucleated RBC % (auto) 0 % 11/11/21 02:00 Nucleated RBCs # 0.0 /100WBC 11/11/21 02:00 Sodium 139 mmol/L (136-145) 11/11/21 02:00 Potassium 3.5 mmol/L (3.5-5.1) 11/11/21 02:00 Chloride 105 mmol/L (98-107) 11/11/21 02:00 Carbon Dioxide 24 mmol/L (22-29) 11/11/21 02:00 Anion Gap 13.5 (5-19) 11/11/21 02:00 BUN 12 mg/dL (8-23) 11/11/21 02:00 Creatinine 0.9 mg/dL (0.7-1.2) 11/11/21 02:00 GFR Calculation 85.0 mL/min (90-130) L 11/11/21 02:00 Glucose 134 mg/dL (65-115) H 11/11/21 02:00 Calculated Osmolality 290 mOsm/kg (285-295) 11/11/21 02:00 Calcium 9.4 mg/dL (8.5-10.5) 11/11/21 02:00 Total Bilirubin 1.0 mg/dL (0.15-1.2) 11/11/21 02:00 AST 32 U/L (0-40) 11/11/21 02:00 ALT 58 U/L (0-41) H 11/11/21 02:00 Alkaline Phosphatase 111 IU/L (40-130) 11/11/21 02:00 Total Protein 6.7 g/dL (6.6-8.7) 11/11/21 02:00 Albumin 4.4 g/dL (3.5-5.2) 11/11/21 02:00 Globulin 2.3 g/dL (1.3-4.6) 11/11/21 02:00 Discharge Plan Discharge Patient Disposition: Home Clinical Impression: Diverticulitis Condition: Stable Prescriptions: New Bactrim DS 800-160 mg tablet 1 tab PO BID 7 Days Qty: 14 0RF No Action hydrocodone-acetaminophen 10-325 mg tablet 1 tab PO Q8H PRN0RF celecoxib [Celebrex] 100 mg capsule 100 mg PO BID 0RF gabapentin 800 mg tablet 800 mg PO TID 0RF simvastatin 40 mg tablet 40 mg PO QDAY 0RF metformin 500 mg tablet 500 mg PO QDAY 0RF furosemide [Lasix] 20 mg tablet 10 mg PO QAM 0RF potassium chloride 10 mEq capsule, extended release 10 meq PO BID 0RF albuterol sulfate [ProAir HFA] 90 mcg/actuation HFA aerosol inhaler 2 puff INHALATION Q6H PRN0RF metoprolol tartrate 50 mg tablet 50 mg PO BID 0RF fenofibrate nanocrystallized [Tricor] 145 mg tablet 145 mg PO QDAY 0RF nitroglycerin [Nitrostat] 0.4 mg tablet, sublingual 0.4 mg SUBLINGUAL Q5M PRN0RF aspirin 81 mg tablet,chewable 81 mg PO QDAY 0RF duloxetine 60 mg capsule,delayed release(DR/EC) 60 mg PO QDAY 0RF diphenhydramine HCl 50 mg capsule 50 mg PO Q6H PRN0RF cinnamon bark 500 mg capsule 500 mg PO QDAY 0RF Natural Herbal Diuretic Tablet PO QDAY 0RF naproxen 250 mg tablet 500 mg PO BID PRN (Reason: pain) Qty: 20 0RF Discharge Orders: Discharge ED (Routine); Ordered 11/11/21 Ordered By: Joao Funez Discharge Diet: Advance as tolerated Discharge Activity: Increase activity as tolerated Patient Instructions: Diverticulitis (ED), Opioid Safety Activity Restrictions/Additional Instructions: Healthy diet. Avoid seeds, legumes, and nuts during diverticular flare. Take antibiotic as directed. Continue with your use of Metamucil. Use Imodium for severe diarrhea. Drink plenty of water. Follow-up with primary care. Return to ER for worsening symptoms such as high fever greater than 100.4, severe abdominal pain, shortness of breath, blood in vomit or stool. Coding Level of Care Code ED Metal Polisher for Morisg Fwd Exam Comprehensive
[2021-11-11 02:00] VITALS: BP 135/73; PULSE 76; RESP 18; TEMP 36.9; O2SAT 98
[2021-11-11 02:06] LABS: Basophils # 0.1 10^3/uL (0.0-0.1); Basophils % 1.9 %; Eosinophils # 0.2 10^3/uL (0.0-0.8); Eosinophils % 2.6 %; Hematocrit 43.4 % (42.0-52.0); Hemoglobin 15.2 g/dL (11.7-16.6); Lymphocytes # 2.7 10^3/uL (0.8-4.8); Mean Corpuscular Volume 88.6 fl (80-94); Mean Platelet Volume 9.8 fL (7.4-10.4); Monocytes # 0.7 10^3/uL (0.2-0.9); Monocytes % 11.9 %; Neutrophils # 2.51 10^3/uL (1.8-7.7); Neutrophils % 40.4 %; Nucleated Red Blood Cells % 0 %; Platelet Count 190 10^3/cmm (130-400); Red Cell Distribution Width 12.6 % (12.1-15.1); White Blood Count 6.2 10^3/uL (4.0-10.0)
[2021-11-11] MEDS: loperamide 2 mg Capsule 4 MG PO (02:09)
[2021-11-11 02:32] LABS: Alanine Aminotransferase 58 U/L (0-41); Albumin Level 4.4 g/dL (3.5-5.2); Alkaline Phosphatase 111 IU/L (40-130); Anion Gap 13.5 (5-19); Aspartate Amino Transferase 32 U/L (0-40); Blood Urea Nitrogen 12 mg/dL (8-23); Calcium 9.4 mg/dL (8.5-10.5); Carbon Dioxide 24 mmol/L (22-29); Chloride 105 mmol/L (98-107); Globulin 2.3 g/dL (1.3-4.6); Glucose 134 mg/dL (65-115); Osmolality Calculated 290 mOsm/kg (285-295); Potassium 3.5 mmol/L (3.5-5.1); Sodium 139 mmol/L (136-145); Total Protein 6.7 g/dL (6.6-8.7)
[2021-11-11 02:53] VITALS: BP 131/66; PULSE 67; RESP 16; O2SAT 95
== END 2021-11-11 02:56 | disposition home or self-care (01) ==
PROVIDERS: Emergency Provider Nurse Practitioner Family
DX: K57.92 Diverticulitis of intestine, part unspecified, without perforation or abscess without bleeding (principal); I10 Essential (primary) hypertension; I25.10 Atherosclerotic heart disease of native coronary artery without angina pectoris
CPT/HCPCS: 74022; 80053; 85025; 96361; 96374; 99284; J2405; J7030

== ENCOUNTER 2022-03-23 11:09 | Emergency (ER) | payer MEDICARE, MEDICAID, SELFPAY ==
[2022-03-23 11:32] VITALS: BP 130/83; PULSE 64; RESP 16; TEMP 36.9; O2SAT 97
--- NOTE | 2022-03-23 11:53 | W.ED.BACK ---
Documented by User: Melyssa Sanchez PA-C 03/23/22 13:01 HPI - Back Pain/Injury General: Chief Complaint: Back Pain/Injury Stated Complaint: back pain, cannot walk Time Seen by Provider: 03/23/22 11:36 Source: patient Mode of arrival: wheelchair Limitations: no limitations History of Present Illness: 66-year-old male presents to the ER today for worsening back pain. Patient has a history of chronic back pain and is scheduled for surgery on Saturday for a pain stimulator. Patient reports he walked to the [employer] last night and before he could get back to the house he felt sudden worsening of the pain. His significant other reports she had to get the walker to get him back to the house. He reports the pain has continued this morning. Patient reports he is unable to move his legs due to severe pain. He reports he physically can move them but it causes severe pain. Patient denies any new type of symptoms including radiating pain or numbness or tingling. Patient denies any loss of bowel or bladder control. Patient reports he takes hydrocodone 10/325 and it is not touching the pain at this time. Review of Systems General: Reports: 10 or more systems reviewed and unremarkable except in HPI and below PFSH ED PFSH: Medical History Asthma CAD (coronary artery disease) History of colon polyps HTN (hypertension) Lumbar and sacral spondylarthritis Seasonal allergies Surgical History H/O coronary angioplasty H/O neck surgery fusion due to 2 separate neck fractures History of back surgery discogram History of colonoscopy with polypectomy History of lumbar surgery L4-L5 laminectomy S/P insertion of spinal cord stimulator Family History Father CAD (coronary artery disease) Osteoarthritis Mother Cancer pancreatic Osteoarthritis Social History Smoking and tobacco status: never smoked Alcohol intake: never Physical Exam Const: COMMON NORMALS: average body habitus, patient oriented x3, no limitations, alert and well nourished; apparent distress (pt appears uncomfortable) Neck/C-Spine: COMMON NORMALS: full ROM Resp: COMMON NORMALS: normal respiratory effort, No retractions and clear to auscultation bilaterally AUSCULTATION: clear to auscultation bilaterally Cardio: COMMON NORMALS: regular rate and regular rhythm RATE: regular rate RHYTHM: regular rhythm Back/Pelvis: OTHER: Patient has worsening pain with any range of motion involving the low back. Patient is resting comfortably in a wheelchair as long as he has not moved. Extremity: COMMON NORMALS: normal to inspection, full ROM and no pedal edema Neuro: COMMON NORMALS: patient oriented x3 SENSORIUM/ORIENTATION: Yes alert Psych: COMMON NORMALS: mental status grossly normal, Normal thought process present and cooperative THOUGHT PROCESS: Normal thought process present Skin: COMMON NORMALS: no rashes or lesions noted and no wounds GENERAL SKIN EXAM: no rashes or lesions noted Course ED course: 66-year-old male presents to the ER today for worsening back pain for the last 24 hours. Patient is scheduled for a pain stimulator insertion on Saturday in [place]. He reports after walking to the [place] last night his pain worsened. Patient had to use a walker to get into the house. He has been unable to walk this morning due to severe pain. He reports he physically is able to but it causes severe pain. He denies any new numbness or tingling. Denies any new neurological deficits. Patient denies any loss of bowel or bladder control. Patient reports he is taking his home pain meds with no relief at all. Patient is unable to take any muscle relaxers or anti-inflammatories due to the surgery on Saturday. There was no new injury so imaging is not warranted at this time. I did discuss this patient with Dr. Denney also. Vital Signs: Vital signs: Vital Signs Temperature 98.5 F 03/23/22 11:32 Pulse Rate 64 03/23/22 11:32 Respiratory Rate 16 03/23/22 11:32 Blood Pressure 130/83 03/23/22 11:32 Pulse Oximetry 97 03/23/22 11:32 Oxygen Delivery Me thod 03/23/22 11:32 MDM - Back Pain/Injury Medical Decision Making 66-year-old male presents to the ER today for worsening back pain for the last 24 hours. Patient is scheduled for a pain stimulator insertion on Saturday in [place]. He reports after walking to the chicken coop last night his pain worsened. Patient had to use a walker to get into the house. He has been unable to walk this morning due to severe pain. He reports he physically is able to but it causes severe pain. He denies any new numbness or tingling. Denies any new neurological deficits. Patient denies any loss of bowel or bladder control. Patient reports he is taking his home pain meds with no relief at all. Patient is unable to take any muscle relaxers or anti-inflammatories due to the surgery on Saturday. There was no new injury so imaging is not warranted at this time. I did discuss this patient with Dr. Denney also. We will give patient Dilaudid to take at home for the next 2 days. I advised patient to go home and rest and not try doing anything. We also discussed that this medication is very strong and if he has any type of respiratory suppression he should use the Narcan he was prescribed. Patient should follow-up with his doctor on Saturday and also call them today and notify them of the new medication. Patient can return to the ER with any new or worsening symptoms including neurological deficits. Patient verbalized understanding and was in agreement with the treatment plan. Critical Care Time Critical Care Time: Critical Care Time: No Discharge Plan Discharge Patient Disposition: Home Clinical Impression: Acute exacerbation of chronic low back pain Condition: Stable Prescriptions: New hydromorphone 4 mg tablet 4 mg PO TID PRN (Reason: pain) 9 Days Qty: 9 0RF Narcan 4 mg/actuation spray,non-aerosol 4 mg intranasal Q2M Qty: 2 0RF Rx Instructions: spray 1 dose into ONE nostril; alternate nostrils w each dose until help arrives No Action hydrocodone-acetaminophen 10-325 mg tablet 1 tab PO Q8H PRN celecoxib [Celebrex] 100 mg capsule 100 mg PO BID gabapentin 800 mg tablet 800 mg PO TID simvastatin 40 mg tablet 40 mg PO QDAY metformin 500 mg tablet 500 mg PO QDAY furosemide [Lasix] 20 mg tablet 10 mg PO QAM potassium chloride 10 mEq capsule, extended release 10 meq PO BID albuterol sulfate [ProAir HFA] 90 mcg/actuation HFA aerosol inhaler 2 puff INHALATION Q6H PRN metoprolol tartrate 50 mg tablet 50 mg PO BID fenofibrate nanocrystallized [Tricor] 145 mg tablet 145 mg PO QDAY nitroglycerin [Nitrostat] 0.4 mg tablet, sublingual 0.4 mg SUBLINGUAL Q5M PRN aspirin 81 mg tablet,chewable 81 mg PO QDAY duloxetine 60 mg capsule,delayed release(DR/EC) 60 mg PO QDAY diphenhydramine HCl 50 mg capsule 50 mg PO Q6H PRN cinnamon bark 500 mg capsule 500 mg PO QDAY Natural Herbal Diuretic Tablet PO QDAY naproxen 250 mg tablet 500 mg PO BID PRN (Reason: pain) Qty: 20 0RF Discharge Orders: Discharge ED (Routine); Ordered 03/23/22 Ordered By: Melyssa Sanchez Discharge Diet: Usual diet Discharge Activity: Increase activity as tolerated Patient Instructions: Opioid Safety, Pain Management Activity Restrictions/Additional Instructions: Contact surgeon and notify them of ER visit today and medications that were prescribed. Follow-up with surgeon on Saturday. Return to the ER with any new or worsening symptoms including loss of bowel or bladder control or other neurological deficits. Coding Level of Care Code ED [facility] for [facility] Fwd Exam Detailed Documented by User: Sukhdeep Montano DO 03/27/22 08:28 HPI - Back Pain/Injury General: Chief Complaint: Back Pain/Injury Stated Complaint: back pain, cannot walk Time Seen by Provider: 03/23/22 11:36 [facility] ED PFSH: Medical History Asthma CAD (coronary artery disease) History of colon polyps HTN (hypertension) Lumbar and sacral spondylarthritis Seasonal allergies Surgical History H/O coronary angioplasty H/O neck surgery fusion due to 2 separate neck fractures History of back surgery discogram History of colonoscopy with polypectomy History of lumbar surgery L4-L5 laminectomy S/P insertion of spinal cord stimulator Family History Father CAD (coronary artery disease) Osteoarthritis Mother Cancer pancreatic Osteoarthritis Social History Smoking and tobacco status: never smoked Alcohol intake: never Course Vital Signs: Vital signs: Vital Signs Temperature 98.5 F 03/23/22 11:32 Pulse Rate 64 03/23/22 11:32 Respiratory Rate 16 03/23/22 11:32 Blood Pressure 130/83 03/23/22 11:32 Pulse Oximetry 97 03/23/22 11:32 Oxygen Delivery Me thod 03/23/22 11:32 MDM - Back Pain/Injury Medical Decision Making 66-year-old male presents to the ER today for worsening back pain for the last 24 hours. Patient is scheduled for a pain stimulator insertion on Saturday in [place]. He reports after walking to the [employer] last night his pain worsened. Patient had to use a walker to get into the house. He has been unable to walk this morning due to severe pain. He reports he physically is able to but it causes severe pain. He denies any new numbness or tingling. Denies any new neurological deficits. Patient denies any loss of bowel or bladder control. Patient reports he is taking his home pain meds with no relief at all. Patient is unable to take any muscle relaxers or anti-inflammatories due to the surgery on Saturday. There was no new injury so imaging is not warranted at this time. I did discuss this patient with Dr. Denney also. We will give patient Dilaudid to take at home for the next 2 days. I advised patient to go home and rest and not try doing anything. We also discussed that this medication is very strong and if he has any type of respiratory suppression he should use the Narcan he was prescribed. Patient should follow-up with his doctor on Saturday and also call them today and notify them of the new medication. Patient can return to the ER with any new or worsening symptoms including neurological deficits. Patient verbalized understanding and was in agreement with the treatment plan. Chart reviewed and patient discussed with midlevel. Agree with assessment and plan. Discharge Plan Discharge Patient Disposition: Home Clinical Impression: Acute exacerbation of chronic low back pain Condition: Stable Prescriptions: New hydromorphone 4 mg tablet 4 mg PO TID PRN (Reason: pain) 9 Days Qty: 9 0RF Narcan 4 mg/actuation spray,non-aerosol 4 mg intranasal Q2M Qty: 2 0RF Rx Instructions: spray 1 dose into ONE nostril; alternate nostrils w each dose until help arrives No Action hydrocodone-acetaminophen 10-325 mg tablet 1 tab PO Q8H PRN celecoxib [Celebrex] 100 mg capsule 100 mg PO BID gabapentin 800 mg tablet 800 mg PO TID simvastatin 40 mg tablet 40 mg PO QDAY metformin 500 mg tablet 500 mg PO QDAY furosemide [Lasix] 20 mg tablet 10 mg PO QAM potassium chloride 10 mEq capsule, extended release 10 meq PO BID albuterol sulfate [ProAir HFA] 90 mcg/actuation HFA aerosol inhaler 2 puff INHALATION Q6H PRN metoprolol tartrate 50 mg tablet 50 mg PO BID fenofibrate nanocrystallized [Tricor] 145 mg tablet 145 mg PO QDAY nitroglycerin [Nitrostat] 0.4 mg tablet, sublingual 0.4 mg SUBLINGUAL Q5M PRN aspirin 81 mg tablet,chewable 81 mg PO QDAY duloxetine 60 mg capsule,delayed release(DR/EC) 60 mg PO QDAY diphenhydramine HCl 50 mg capsule 50 mg PO Q6H PRN cinnamon bark 500 mg capsule 500 mg PO QDAY Natural Herbal Diuretic Tablet PO QDAY naproxen 250 mg tablet 500 mg PO BID PRN (Reason: pain) Qty: 20 0RF Discharge Orders: Discharge ED (Routine); Ordered 03/23/22 Ordered By: Melyssa Sanchez Discharge Diet: Usual diet Discharge Activity: Increase activity as tolerated Patient Instructions: Opioid Safety, Pain Management Activity Restrictions/Additional Instructions: Contact surgeon and notify them of ER visit today and medications that were prescribed. Follow-up with surgeon on Saturday. Return to the ER with any new or worsening symptoms including loss of bowel or bladder control or other neurological deficits. Coding Level of Care Code ED [facility] for [facility] Exam Detailed
== END 2022-03-23 12:21 | disposition home or self-care (01) ==
PROVIDERS: Emergency Provider Physician Assistant
DX: M54.50 Low back pain, unspecified (principal); G89.29 Other chronic pain
CPT/HCPCS: 99283

== ENCOUNTER 2022-03-24 03:00 | Emergency (ER) | payer MEDICARE, MEDICAID, SELFPAY ==
[2022-03-24] VITALS (9 sets, daily range): BP systolic 131–178; BP diastolic 71–104; PULSE 59–81; RESP 16–18; TEMP 36.6; O2SAT 96–98; BMI 32.1
--- NOTE | 2022-03-24 03:03 | W.ED.BACK ---
Documented by User: Bubba Garcia MD 04/15/22 18:04 HPI - Back Pain/Injury General: Chief Complaint: Back Pain/Injury Stated Complaint: BACK PAIN Time Seen by Provider: 03/24/22 03:02 History of Present Illness: Mr. Prado is a 66-year-old gentleman with significant past medical history of chronic back pain presenting to the emergency department due to worsening back pain. He reports symptom being worse over the past few days. Denies specific provoking factor though he has been having to be in the car more lately. Reports symptoms have been intractable essentially for the past day. Prior ED visit he was prescribed Dilaudid however this has had no improvement. Continues his home medication regimen without improvement. Denies new fevers or chills. Denies loss of bowel or bladder control. No new weakness or paresthesias. Patient is supposed to have some sort of operative management regarding his spinal cord stimulator on Saturday but symptoms began to severe. No other specific changes in health, exacerbating, or alleviating factors identified. Onset (ago): day(s) Severity: severe Quality: aching and spasming Location: lumbar spine Exacerbating factors: movement Relieving factors: none Treatments prior to arrival: other medications and prescription analgesics Review of Systems General: Reports: 10 or more systems reviewed and unremarkable except in HPI and below PFSH ED PFSH: Medical History (Updated 04/04/22 @ 13:36 by Cynthia Alcazar MD) Arachnoid cyst of posterior cranial fossa CAD (coronary artery disease) Cardiomegaly Chronic low back pain History of colon polyps History of COVID-19 History of diverticulitis History of OH (myocardial infarction) History of TIA (transient ischemic attack) History of tobacco abuse Hypertension Lumbar and sacral spondylarthritis Seasonal allergies Surgical History (Updated 04/04/22 @ 13:07 by Cynthia Alcazar MD) H/O coronary angioplasty H/O neck surgery fusion due to 2 separate neck fractures History of arthroscopy of right knee History of back surgery discogram History of colonoscopy with polypectomy History of lumbar surgery L4-L5 laminectomy S/P insertion of spinal cord stimulator Family History (Updated 04/04/22 @ 12:38 by Cynthia Alcazar MD) Father CAD (coronary artery disease) Osteoarthritis Mother Cancer pancreatic Osteoarthritis Brother Cancer pancreatic Denies family history of Stroke Social History (Updated 04/04/22 @ 12:38 by Cynthia Alcazar MD) Smoking and tobacco status: former smoker Quit status (tobacco): has quit using tobacco Year quit tobacco: 2008 Former quit date comment: 60 pack year Alcohol intake: never Household members: significant other and children Marital status: Number of children: 6 Physical Exam Const: COMMON NORMALS: alert GENERAL APPEARANCE: cooperative, well developed and in distress (Distress due to pain) HENMT: COMMON NORMALS: normocephalic and atraumatic HEAD & SCALP: normocephalic and atraumatic Eye: COMMON NORMALS: conjunctivae normal CONJUNCTIVA: Yes conjunctivae normal SCLERA: sclerae normal Neck/C-Spine: COMMON NORMALS: supple GENERAL: Yes trachea midline Resp: COMMON NORMALS: normal respiratory effort and clear to auscultation bilaterally EFFORT & INSPECTION: Yes able to speak in complete sentences AUSCULTATION: clear to auscultation bilaterally Cardio: COMMON NORMALS: regular rate and regular rhythm RATE: regular rate RHYTHM: regular rhythm GI: COMMON NORMALS: Soft to palpation PALPATION: Yes Soft to palpation and No Tenderness to palpation present (GI) Extremity: GENERAL: Yes normal exam except as noted and No edema Neuro: COMMON NORMALS: moves all extremities SENSORIUM/ORIENTATION: Yes alert and No Orientation impaired Psych: COMMON NORMALS: mental status grossly normal and Normal thought process present THOUGHT PROCESS: Normal thought process present Course Vital Signs: Vital signs: Vital Signs Temperature 97.8 F 03/24/22 03:02 Pulse Rate 81 03/24/22 14:12 Respiratory Rate 16 03/24/22 14:12 Blood Pressure 153/82 03/24/22 14:12 Pulse Oximetry 96 03/24/22 14:12 Oxygen Delivery Ak thod 03/24/22 12:01 MDM - Back Pain/Injury Medical Decision Making 66-year-old gentleman presenting with acute on chronic back pain. Does have planned operative intervention. Patient not improved with first-line medications and additional treatments ordered. Handed off pending imaging and reassessment with possible plan for transfer due to uncontrolled symptoms. Patient presents for severe back pain acute on chronic spoke to patient's spine surgeon at [place] will transfer there as he supposed to have his stimulator battery switched he has no signs of abscess or cord compression here will transfer for higher level of care for spine surgery. Medical Records I reviewed the patient's medical records. Labs I reviewed the patient's lab results. : 03/24/22 07:14 03/24/22 07:14 Radiology Impressions Lumbar Spine CT 03/24/22 04:07 IMPRESSION: 1. Postsurgical changes L4-L5 on the right. 2. Moderate degenerative changes as described. 3. Moderate central canal stenosis L2-L3 and mild to moderate canal stenosis L3-L4. 4. Focus of sclerosis within L2 which could reflect bone island although findings require correlation for any history of neoplasm. The area slightly larger in size compared to the prior CT lumbar spine 2019. Thoracic Spine CT 03/24/22 04:07 IMPRESSION: 1. Degenerative hypertrophic formation and facet arthritis. 2. Maintenance of thoracic vertebral body heights. 3. Intraluminal curvilinear artifact versus soft tissue opacity of the tracheal lumen. 4. Small nonspecific focus of sclerosis T7. Laboratory Results WBC 5.2 10^3/uL (4.0-10.0) 03/24/22 07:14 RBC 4.96 10^6/uL (4.1-5.3) 03/24/22 07:14 Hgb 15.0 g/dL (11.7-16.6) 03/24/22 07:14 Hct 45.5 % (42.0-52.0) 03/24/22 07:14 MCV 91.7 fl (80-94) 03/24/22 07:14 MCH 30.2 pg (28.0-34.0) 03/24/22 07:14 MCHC 33.0 g/dL (30.0-36.0) 03/24/22 07:14 RDW 12.3 % (12.1-15.1) 03/24/22 07:14 Plt Count 174 10^3/cmm (130-400) 03/24/22 07:14 MPV 9.9 fL (7.4-10.4) 03/24/22 07:14 Neut % (Auto) 49.0 % 03/24/22 07:14 Lymph % (Auto) 36.5 % 03/24/22 07:14 [place] % (Auto) 11.0 % 03/24/22 07:14 Eos % (Auto) 1.9 % 03/24/22 07:14 Baso % (Auto) 1.4 % 03/24/22 07:14 Neut # (Auto) 2.54 10^3/uL (1.8-7.7) 03/24/22 07:14 Lymph # (Auto) 1.9 10^3/uL (0.8-4.8) 03/24/22 07:14 [place] # (Auto) 0.6 10^3/uL (0.2-0.9) 03/24/22 07:14 Eos # (Auto) 0.1 10^3/uL (0.0-0.8) 03/24/22 07:14 Baso # (Auto) 0.1 10^3/uL (0.0-0.1) 03/24/22 07:14 Nucleated RBC % (auto) 0 % 03/24/22 07:14 Nucleated RBCs # 0.0 /100WBC 03/24/22 07:14 Sodium 141 mmol/L (136-145) 03/24/22 07:14 Potassium 4.2 mmol/L (3.5-5.1) 03/24/22 07:14 Chloride 106 mmol/L (98-107) 03/24/22 07:14 Carbon Dioxide 27 mmol/L (22-29) 03/24/22 07:14 Anion Gap 12.2 (5-19) 03/24/22 07:14 BUN 9 mg/dL (8-23) 03/24/22 07:14 Creatinine 1.0 mg/dL (0.7-1.2) 03/24/22 07:14 GFR Calculation 75.2 mL/min (90-130) L 03/24/22 07:14 Glucose 98 mg/dL (65-115) 03/24/22 07:14 Calculated Osmolality 291 mOsm/kg (285-295) 03/24/22 07:14 Calcium 8.7 mg/dL (8.5-10.5) 03/24/22 07:14 Total Bilirubin 0.6 mg/dL (0.15-1.2) 03/24/22 07:14 AST 26 U/L (0-40) 03/24/22 07:14 ALT 41 U/L (0-41) 03/24/22 07:14 Alkaline Phosphatase 99 U/L (40-130) 03/24/22 07:14 Total Protein 6.3 g/dL (6.6-8.7) L 03/24/22 07:14 Albumin 3.9 g/dL (3.5-5.2) 03/24/22 07:14 Globulin 2.4 g/dL (1.3-4.6) 03/24/22 07:14 Urine Color Yellow (Yellow) 03/24/22 04:33 Urine Appearance Clear (CLEAR) 03/24/22 04:33 Urine pH 7 (5-7) 03/24/22 04:33 Ur Specific [place] 1.010 (1.005-1.030) 03/24/22 04:33 Urine Protein Neg (Negative) 03/24/22 04:33 Urine Glucose (UA) Norm (Normal) 03/24/22 04:33 Urine Ketones Negative (Negative) 03/24/22 04:33 Urine Blood Neg (Negative) 03/24/22 04:33 Urine Nitrate Negative (Negative) 03/24/22 04:33 Urine Bilirubin Neg (Negative) 03/24/22 04:33 Urine Urobilinogen Neg mg/dL (Negative) 03/24/22 04:33 Ur Leukocyte Esterase Negative (Negative) 03/24/22 04:33 Discharge Plan Discharge Patient Disposition: Xfer Short-Term Hosp Clinical Impression: Low back pain Condition: Stable Coding Level of Care Code ED Climate Change Analyst for Chg Fwd Exam Comprehensive Documented by User: Frantz Mendosa MD 03/24/22 13:47 HPI - Back Pain/Injury General: Chief Complaint: Back Pain/Injury Stated Complaint: BACK PAIN Time Seen by Provider: 03/24/22 03:02 PFSH ED PFSH: Medical History (Updated 04/04/22 @ 13:36 by Cynthia Alcazar MD) Arachnoid cyst of posterior cranial fossa CAD (coronary artery disease) Cardiomegaly Chronic low back pain History of colon polyps History of COVID-19 History of diverticulitis History of OH (myocardial infarction) History of TIA (transient ischemic attack) History of tobacco abuse Hypertension Lumbar and sacral spondylarthritis Seasonal allergies Surgical History (Updated 04/04/22 @ 13:07 by Cynthia Alcazar MD) H/O coronary angioplasty H/O neck surgery fusion due to 2 separate neck fractures History of arthroscopy of right knee History of back surgery discogram History of colonoscopy with polypectomy History of lumbar surgery L4-L5 laminectomy S/P insertion of spinal cord stimulator Family History (Updated 04/04/22 @ 12:38 by Cynthia Alcazar MD) Father CAD (coronary artery disease) Osteoarthritis Mother Cancer pancreatic Osteoarthritis Brother Cancer pancreatic Denies family history of Stroke Social History (Updated 04/04/22 @ 12:38 by Cynthia Alcazar MD) Smoking and tobacco status: former smoker Quit status (tobacco): has quit using tobacco Year quit tobacco: 2008 Former quit date comment: 60 pack year Alcohol intake: never Household members: significant other and children Marital status: Number of children: 6 Course Vital Signs: Vital signs: Vital Signs Temperature 97.8 F 03/24/22 03:02 Pulse Rate 81 03/24/22 14:12 Respiratory Rate 16 03/24/22 14:12 Blood Pressure 153/82 03/24/22 14:12 Pulse Oximetry 96 03/24/22 14:12 Oxygen Delivery Me thod 03/24/22 12:01 MDM - Back Pain/Injury Medical Decision Making Patient presents for severe back pain acute on chronic spoke to patient's spine surgeon at [place] will transfer there as he supposed to have his stimulator battery switched he has no signs of abscess or cord compression here will transfer for higher level of care for spine surgery. Labs : 03/24/22 07:14 03/24/22 07:14 Radiology Impressions Lumbar Spine CT 03/24/22 04:07 IMPRESSION: 1. Postsurgical changes L4-L5 on the right. 2. Moderate degenerative changes as described. 3. Moderate central canal stenosis L2-L3 and mild to moderate canal stenosis L3-L4. 4. Focus of sclerosis within L2 which could reflect bone island although findings require correlation for any history of neoplasm. The area slightly larger in size compared to the prior CT lumbar spine 2019. Thoracic Spine CT 03/24/22 04:07 IMPRESSION: 1. Degenerative hypertrophic formation and facet arthritis. 2. Maintenance of thoracic vertebral body heights. 3. Intraluminal curvilinear artifact versus soft tissue opacity of the tracheal lumen. 4. Small nonspecific focus of sclerosis T7. Laboratory Results WBC 5.2 10^3/uL (4.0-10.0) 03/24/22 07:14 RBC 4.96 10^6/uL (4.1-5.3) 03/24/22 07:14 Hgb 15.0 g/dL (11.7-16.6) 03/24/22 07:14 Hct 45.5 % (42.0-52.0) 03/24/22 07:14 MCV 91.7 fl (80-94) 03/24/22 07:14 MCH 30.2 pg (28.0-34.0) 03/24/22 07:14 MCHC 33.0 g/dL (30.0-36.0) 03/24/22 07:14 RDW 12.3 % (12.1-15.1) 03/24/22 07:14 Plt Count 174 10^3/cmm (130-400) 03/24/22 07:14 MPV 9.9 fL (7.4-10.4) 03/24/22 07:14 Neut % (Auto) 49.0 % 03/24/22 07:14 Lymph % (Auto) 36.5 % 03/24/22 07:14 [place] % (Auto) 11.0 % 03/24/22 07:14 Eos % (Auto) 1.9 % 03/24/22 07:14 Baso % (Auto) 1.4 % 03/24/22 07:14 Neut # (Auto) 2.54 10^3/uL (1.8-7.7) 03/24/22 07:14 Lymph # (Auto) 1.9 10^3/uL (0.8-4.8) 03/24/22 07:14 [place] # (Auto) 0.6 10^3/uL (0.2-0.9) 03/24/22 07:14 Eos # (Auto) 0.1 10^3/uL (0.0-0.8) 03/24/22 07:14 Baso # (Auto) 0.1 10^3/uL (0.0-0.1) 03/24/22 07:14 Nucleated RBC % (auto) 0 % 03/24/22 07:14 Nucleated RBCs # 0.0 /100WBC 03/24/22 07:14 Sodium 141 mmol/L (136-145) 03/24/22 07:14 Potassium 4.2 mmol/L (3.5-5.1) 03/24/22 07:14 Chloride 106 mmol/L (98-107) 03/24/22 07:14 Carbon Dioxide 27 mmol/L (22-29) 03/24/22 07:14 Anion Gap 12.2 (5-19) 03/24/22 07:14 BUN 9 mg/dL (8-23) 03/24/22 07:14 Creatinine 1.0 mg/dL (0.7-1.2) 03/24/22 07:14 GFR Calculation 75.2 mL/min (90-130) L 03/24/22 07:14 Glucose 98 mg/dL (65-115) 03/24/22 07:14 Calculated Osmolality 291 mOsm/kg (285-295) 03/24/22 07:14 Calcium 8.7 mg/dL (8.5-10.5) 03/24/22 07:14 Total Bilirubin 0.6 mg/dL (0.15-1.2) 03/24/22 07:14 AST 26 U/L (0-40) 03/24/22 07:14 ALT 41 U/L (0-41) 03/24/22 07:14 Alkaline Phosphatase 99 U/L (40-130) 03/24/22 07:14 Total Protein 6.3 g/dL (6.6-8.7) L 03/24/22 07:14 Albumin 3.9 g/dL (3.5-5.2) 03/24/22 07:14 Globulin 2.4 g/dL (1.3-4.6) 03/24/22 07:14 Urine Color Yellow (Yellow) 03/24/22 04:33 Urine Appearance Clear (CLEAR) 03/24/22 04:33 Urine pH 7 (5-7) 03/24/22 04:33 Ur Specific [place] 1.010 (1.005-1.030) 03/24/22 04:33 Urine Protein Neg (Negative) 03/24/22 04:33 Urine Glucose (UA) Norm (Normal) 03/24/22 04:33 Urine Ketones Negative (Negative) 03/24/22 04:33 Urine Blood Neg (Negative) 03/24/22 04:33 Urine Nitrate Negative (Negative) 03/24/22 04:33 Urine Bilirubin Neg (Negative) 03/24/22 04:33 Urine Urobilinogen Neg mg/dL (Negative) 03/24/22 04:33 Ur Leukocyte Esterase Negative (Negative) 03/24/22 04:33 Discharge Plan Discharge Patient Disposition: Xfer Short-Term Hosp Clinical Impression: Low back pain Condition: Stable Coding Level of Care Code ED Climate Change Analyst for Morisg Fwd Exam Comprehensive
[2022-03-24] MEDS: diazePAM 5 mg Tablet PO ×2 (03:25→08:59)
[2022-03-24] MEDS: fentaNYL 50 mcg/mL INJ 2mL 100 MCG IVP (03:48)
--- NOTE | 2022-03-24 04:07 | CTR_ITS ---
PROCEDURE INFORMATION: Exam: CT Lumbar Spine Without Contrast Exam date and time: 03/24/2022 5:41 AM Age: 66 years old Clinical indication: Low back pain; Prior surgery; Surgery type: Lumbar fusion. Spinal stimulator; Patient HX: Sudden onset of severe back pain with no injury. TECHNIQUE: Imaging protocol: Computed tomography of the lumbar spine without contrast. Radiation optimization: All CT scans at this facility use at least one of these dose optimization techniques: automated exposure control; mA and/or kV adjustment per patient size (includes targeted exams where dose is matched to clinical indication); or iterative reconstruction. COMPARISON: CT lumbar spine wo con* [id number] 01/28/2019 3:51 PM RADIATION DOSE METRICS: Total DLP (mGy-cm): 888.3 FINDINGS: Tubes, catheters and devices: Interspace device L4-L5. Bilateral posterior trevon and pedicle screws at L4 and L5. Partially visible spinal stimulator electrodes traversing the soft tissues at the thoracolumbar junction. Bones/joints: Focal area of sclerosis within L2. Mild degenerative hypertrophic formation. Facet arthritis. No acute fracture. L1-L2: Facet arthritis with ligamentum flavum thickening. Posterior disc osteophyte formation with no severe canal stenosis. Slight posterior subluxation L1 on L2. L2-L3: Facet arthritis. Posterior disc bulge with additional ligamentum flavum thickening manifest moderate central canal stenosis. L3-L4: Facet arthritis with ligamentum flavum thickening. Asymmetric posterolateral extension of disc osteophyte formation and disc bulge. Inferior left neural foraminal narrowing. Mild to moderate central canal stenosis. L4-L5: Right facetectomy. There is no severe canal stenosis. Neural foramina are maintained. Prominent facet arthritis on the left. L5-S1: No severe canal stenosis. Posterior disc bulge. Kidneys and ureters: Partially visible stranding surrounding both kidneys fairly symmetric. Intraperitoneal space: No fluid in the retroperitoneum. Vasculature: Calcified abdominal aorta. retroaortic left renal vein. Soft tissues: Unremarkable. CT/CT lumbar spine wo con* [id number] IMPRESSION: 1. Postsurgical changes L4-L5 on the right. 2. Moderate degenerative changes as described. 3. Moderate central canal stenosis L2-L3 and mild to moderate canal stenosis L3-L4. 4. Focus of sclerosis within L2 which could reflect bone island although findings require correlation for any history of neoplasm. The area slightly larger in size compared to the prior CT lumbar spine 2019.
--- NOTE | 2022-03-24 04:07 | CTR_ITS ---
PROCEDURE INFORMATION: Exam: CT Thoracic Spine Without Contrast Exam date and time: 03/24/2022 5:37 AM Age: 66 years old Clinical indication: Pain in thoracic spine; Prior surgery; Surgery type: Spinal stimulator; Patient HX: Sudden onset of severe back pain with no injury. TECHNIQUE: Imaging protocol: Computed tomography of the thoracic spine without contrast. Radiation optimization: All CT scans at this facility use at least one of these dose optimization techniques: automated exposure control; mA and/or kV adjustment per patient size (includes targeted exams where dose is matched to clinical indication); or iterative reconstruction. COMPARISON: CT lung screening [id number] 10/07/2020 8:41 AM RADIATION DOSE METRICS: Total DLP (mGy-cm): 1138.41 FINDINGS: Tubes, catheters and devices: Intraspinal stimulator wires position at the thoracic spine T9-10 level. Bones/joints: Calcified thoracic aorta. Degenerative hypertrophic vertebral body formation. Lower thoracic endplate irregularity. Small focus of sclerosis posterior T7 vertebral body. Lower thoracic levels of interspace narrowing. T9-T10: Anterior disc margin calcification T9 and T10. Trachea: Curvilinear artifact versus focal soft tissue secretions versus other intraluminal curvilinear abnormality within the trachea at a level of the upper thoracic spine. Lungs: Dependent atelectasis posterior lungs. Linear scarring left lower lobe. CT/CT thoracic spin wo con* [id number] IMPRESSION: 1. Degenerative hypertrophic formation and facet arthritis. 2. Maintenance of thoracic vertebral body heights. 3. Intraluminal curvilinear artifact versus soft tissue opacity of the tracheal lumen. 4. Small nonspecific focus of sclerosis T7.
[2022-03-24] MEDS: HYDROmorphone 1 mg/mL INJ 1 mL IVP ×2 (04:31→10:25)
[2022-03-24 04:55] LABS: Add Urine Microscopic? NO; Charge for UA Resulting for Rev
[2022-03-24 05:03] LABS: Bilirubin Urine Neg (Negative); Blood Urine Neg (Negative); Glucose Urine UA Norm (Normal); Ketones Urine Negative (Negative); Leukocyte Esterase Urine Negative (Negative); Nitrate Urine Negative (Negative); Protein Urine Neg (Negative); Urine Appearance Clear (CLEAR); Urine Color Yellow (Yellow); Urobilinogen Urine Neg (Negative); pH Urine 7 (5-7)
[2022-03-24 07:37] LABS: Basophils # 0.1 10^3/uL (0.0-0.1); Basophils % 1.4 %; Eosinophils # 0.1 10^3/uL (0.0-0.8); Eosinophils % 1.9 %; Hematocrit 45.5 % (42.0-52.0); Lymphocytes # 1.9 10^3/uL (0.8-4.8); Lymphocytes % 36.5 %; Mean Corpuscular Hemoglobin 30.2 pg (28.0-34.0); Mean Corpuscular Volume 91.7 fl (80-94); Mean Platelet Volume 9.9 fL (7.4-10.4); Monocytes # 0.6 10^3/uL (0.2-0.9); Neutrophils # 2.54 10^3/uL (1.8-7.7); Nucleated Red Blood Cells % 0 %; Platelet Count 174 10^3/cmm (130-400); Red Blood Count 4.96 10^6/uL (4.1-5.3); Red Cell Distribution Width 12.3 % (12.1-15.1); White Blood Count 5.2 10^3/uL (4.0-10.0)
--- NOTE | 2022-03-24 07:38 | PC.NURSE ---
pt laying supine in bed, respirations even and unlabored. bowel sounds present. skin pink/warm/dry. pt c/o 8/10 lumbar pain that worsens with movement. pt requesting additional pain medication. additional warm blanket brought to patient per request. call light within reach.
[2022-03-24 07:51] LABS: Alanine Aminotransferase 41 U/L (0-41); Albumin Level 3.9 g/dL (3.5-5.2); Alkaline Phosphatase 99 U/L (40-130); Anion Gap 12.2 (5-19); Aspartate Amino Transferase 26 U/L (0-40); Blood Urea Nitrogen 9 mg/dL (8-23); Calcium 8.7 mg/dL (8.5-10.5); Carbon Dioxide 27 mmol/L (22-29); Chloride 106 mmol/L (98-107); Globulin 2.4 g/dL (1.3-4.6); Glomerular Filtration Rate 75.2 mL/min (90-130); Glucose 98 mg/dL (65-115); Osmolality Calculated 291 mOsm/kg (285-295); Potassium 4.2 mmol/L (3.5-5.1); Sodium 141 mmol/L (136-145); Total Bilirubin 0.6 mg/dL (0.15-1.2); Total Protein 6.3 g/dL (6.6-8.7)
[2022-03-24] MEDS: diphenhydrAMINE 50 mg/mL SDV 1mL IVP (08:15)
[2022-03-24] MEDS: metoclopramide 5 mg/mL SDV 2 mL 10 MG IVP (08:27)
--- NOTE | 2022-03-24 09:43 | PC.NURSE ---
pt resting in bed, laying on right side. family at bedside.
--- NOTE | 2022-03-24 10:17 | PC.NURSE ---
pt resting supine in bed, requesting additional pain medications.
[2022-03-24] MEDS: dexamethasone 10 mg/mL INJ IVP (10:33)
--- NOTE | 2022-03-24 12:02 | PC.NURSE ---
pt and family updated, awaiting return call from receiving hospital.
== END 2022-03-24 15:18 | disposition short-term general hospital (02) ==
PROVIDERS: Emergency Medicine; Emergency Provider Emergency Medicine
DX: M54.50 Low back pain, unspecified (principal)
CPT/HCPCS: 36415; 72128; 72131; 80053; 81003; 85025; 96365; 96375; 96376; 99285; J1100; J1170; J1200; J2765; J3010; J3490; J7050

== ENCOUNTER → 2022-04-23 09:25 | Outpatient (BNVA) | payer MEDICARE, MEDICAID, SELFPAY | PROVIDERS: PCP Family Medicine; Visit Provider Anesthesiology Pain Medicine | DX: G89.29 Other chronic pain (principal); M47.816 Spondylosis without myelopathy or radiculopathy, lumbar region; M51.16 Intervertebral disc disorders with radiculopathy, lumbar region; M79.604 Pain in right leg; M79.605 Pain in left leg; Z87.891 Personal history of nicotine dependence; Z98.890 Other specified postprocedural states | CPT/HCPCS: 99205 ==

== ENCOUNTER → 2022-05-22 09:10 | Outpatient (BNVA) | payer MEDICARE, MEDICAID, SELFPAY | PROVIDERS: PCP Family Medicine; Visit Provider Anesthesiology Pain Medicine | DX: G89.29 Other chronic pain; M51.16 Intervertebral disc disorders with radiculopathy, lumbar region; M47.816 Spondylosis without myelopathy or radiculopathy, lumbar region; M54.2 Cervicalgia; M79.604 Pain in right leg; M79.605 Pain in left leg; Z87.891 Personal history of nicotine dependence; Z98.890 Other specified postprocedural states | CPT/HCPCS: 80053; 80061; 99214 ==

== ENCOUNTER → 2022-06-18 10:16 | Outpatient (BNVA) | payer MEDICARE, MEDICAID, SELFPAY | PROVIDERS: PCP Family Medicine; Visit Provider Anesthesiology Pain Medicine | DX: G89.29 Other chronic pain (principal); M51.16 Intervertebral disc disorders with radiculopathy, lumbar region; M47.816 Spondylosis without myelopathy or radiculopathy, lumbar region; M54.2 Cervicalgia; M79.604 Pain in right leg; M79.605 Pain in left leg; Z98.890 Other specified postprocedural states | CPT/HCPCS: 99214 ==

== ENCOUNTER → 2023-02-19 13:29 | Outpatient (BNVA) | payer MEDICARE, MEDICAID, SELFPAY | PROVIDERS: PCP Family Medicine; Visit Provider Family Medicine | DX: E78.5 Hyperlipidemia, unspecified (principal); I10 Essential (primary) hypertension | CPT/HCPCS: 80048; 80061 ==

== ENCOUNTER → 2023-07-12 08:50 | Outpatient (BNVA) | payer MEDICARE, MEDICAID, SELFPAY | PROVIDERS: PCP Family Medicine; Visit Provider Family Medicine | DX: M79.10 Myalgia, unspecified site (principal) | CPT/HCPCS: 80053; 82550; 82552; 82607; 83735; 84443; 85025; 85651; 86140 ==

== ENCOUNTER 2023-08-01 15:19 | Outpatient (CLI) | payer MEDICARE, MEDICAID, SELFPAY ==
--- NOTE | 2023-08-01 15:30 | CT_ITS ---
WS: [id number] CT HEAD NONCONTRAST HISTORY: f/u arachnoid cyst TECHNIQUE: Contiguous axial imaging performed through the brain in 2.5 mm imaging. Bone and soft tiss ue windows. Sagittal and coronal reformats reviewed. All CT scans at [facility] use at least one of these dose optimization techniques: automated exposure control; mA and/or kV adjustment per pa tient size (includes targeted exams where dose is matched to clinical indication); or iterative recon struction. DLP: 1128.91 mGy.cm COMPARISON: 01/02/2021 and 07/17/2014 No acute intracranial hemorrhage, midline shift or mass effect. Mild atrophy and small vessel ischemic disease. There is a large cystic mass in the LEFT anterior mid dle cranial fossa with mass effect upon the temporal lobe. This is consistent with an arachnoid cyst which has been present on multiple prior studies without significant increase in size. No midline milton ft. LEFT middle cranial fossa cyst measures 5.6 x 4.6 and extends over a length of 5.4 cm. There is a n additional cystic collection in the posterior fossa, posterior to the cerebellum which crosses the midline. This cystic fluid collection is also unchanged with mild mass effect upon the cerebellum. No progression in size. Ventricles: Normal size with no hydrocephalus. Paranasal sinuses: As visualized are clear. Mastoid air cells: Well pneumatized. Calvarium and scalp: Skull is intact with no soft tissue edema or swelling. IMPRESSION: 1. Large LEFT middle cranial fossa arachnoid cyst is stable over multiple prior years. No enlargemen t or new mass effect. 2. Retrocerebellar cystic collection. 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 No inter margaux change in size or progression. 3. Mild cerebral atrophy and small vessel ischemic disease.
== END 2023-08-01 15:20 | disposition home or self-care (01) ==
LOC: RAD 15:19
PROVIDERS: PCP Family Medicine; Visit Provider Family Medicine
DX: G93.0 Cerebral cysts (principal); I67.89 Other cerebrovascular disease
CPT/HCPCS: 70450

== ENCOUNTER 2024-07-27 08:53 | Outpatient (CLI) | payer MEDICARE, SELFPAY ==
--- NOTE | 2024-07-27 08:56 | XRR_ITS ---
PROCEDURE INFORMATION: Exam: XR Right Knee Exam date and time: 07/27/2024 9:09 AM Age: 69 years old Clinical indication: Right; Prior surgery; Surgery date: 1-6 months; Surgery type: Arthroscopy; Patient HX: --pain and popping in knee since surgery; Additional info: Worsening chronic RT knee pain, S/P arthroscopy TECHNIQUE: Imaging protocol: Radiologic exam of the right knee. Views: 3 views. AP Obilque Lateral COMPARISON: CR XR knee RT 3V* [id number] 08/20/2019 12:58 PM FINDINGS: Bones/joints: Moderate to severe tricompartmental degenerative changes identified within the knee. Narrowing of the knee lateral compartment is demonstrated. No joint effusion is demonstrated. Diffusely decreased bone density. Bony structures appear otherwise unremarkable. No visualized evidence for acute bony fracture or dislocation. Soft tissues: The soft tissue appear unremarkable. Notes: If there is further concern, recommend follow-up radiographs or MRI for complete assessment. XR/XR knee RT 3V* [id number] IMPRESSION: 1. No acute bony abnormality identified. 2. Chronic bony changes.
== END 2024-07-27 08:54 | disposition home or self-care (01) ==
LOC: RAD 08:54
PROVIDERS: PCP Family Medicine; Visit Provider Family Medicine
DX: M25.561 Pain in right knee (principal); I10 Essential (primary) hypertension; I25.10 Atherosclerotic heart disease of native coronary artery without angina pectoris; E78.5 Hyperlipidemia, unspecified; Z86.73 Personal history of transient ischemic attack (TIA), and cerebral infarction without residual deficits; Z98.890 Other specified postprocedural states; R93.6 Abnormal findings on diagnostic imaging of limbs
CPT/HCPCS: 73562; 80061; 83735; 85025

== ENCOUNTER → 2024-07-30 09:53 | Outpatient (BNVA) | payer MEDICARE, SELFPAY | PROVIDERS: PCP Family Medicine; Referring Provider Family Medicine; Visit Provider Surgery | DX: Z12.11 Encounter for screening for malignant neoplasm of colon (principal); Z87.19 Personal history of other diseases of the digestive system; Z86.0100 Personal history of colon polyps, unspecified | CPT/HCPCS: 99024; 99204 ==

== ENCOUNTER → 2024-11-02 12:40 | Outpatient (BNVA) | payer MEDICARE, SELFPAY | PROVIDERS: PCP Family Medicine; Visit Provider Family Medicine | DX: R25.2 Cramp and spasm (principal) | CPT/HCPCS: 80053; 83735 ==

== ENCOUNTER 2024-11-11 18:38 | Emergency (ER) | payer MEDICARE, SELFPAY ==
[2024-11-11 18:50] VITALS: BP 140/101; PULSE 72; RESP 16; TEMP 36.8; O2SAT 95
--- NOTE | 2024-11-11 19:07 | ED_ITS ---
HPI - Animal Bite General: Chief Complaint: Animal Bite Stated Complaint: Dog bite right hand/thumb Time Seen by Provider: 11/11/24 18:58 Source: patient Mode of arrival: ambulatory Limitations: no limitations History of Present Illness: Patient is a nice 69-year-old male presents to ED today for evaluation of a dog bite involving his right thumb that he sustained just prior to arrival. He states dog was a neighbors dog and attacking his chickens. He states the dog barely nicked his right thumb. Last tetanus is unknown. It is unknown whether the animal is up-to-date on immunizations. He does state he filed a police report and they were going to quarantine the animal. MD complaint: animal bite Onset (ago): hour(s) Animal: dog Description of animal: household pet (neighbor's dog) and appeared well Mechanism: bite Location - Extremities: Right: hand (thumb) Context: provoked (dog was attacking chickens so patient intervened) Associated symptoms: Reports no associated symptoms Treatments prior to arrival: irrigation Related Data Home Medications ?Medication ?Instructions ?Recorded ?Confirmed aspirin 81 mg chewable tablet 81 mg PO QDAY 07/29/19 0 11/02/24 chromium picolinate 400 mcg tablet 800 mcg PO DAILY 11/02/24 omega 9-nab-wrj-fish oil 300 1 cap PO DAILY 07/27/24 0 11/02/24 mg-1,000 mg capsule (Fish Oil) furosemide 20 mg tablet 30 mg PO QAM 08/03/24 meloxicam 15 mg tablet 15 mg PO DAILY 08/03/2410/07 Previous Rx's ?Medication ?Instructions ?Recorded epinephrine 0.3 mg/0.3 mL 0.3 mg (0.3 mL) IM Q4H PRN 0 04/04/22 injection, auto-injector (EpiPen anaphylaxis #2 ea 2-Yeison) blood pressure cuff #1 ea 07/26/23 nitroglycerin 0.4 mg sublingual 0.4 mg sublingual Q5M PRN chest 07/27/24 tablet (Nitrostat) pain #100 tabs atorvastatin 40 mg tablet 40 mg PO DAILY #90 tabs 08/09 gabapentin 800 mg tablet See Rx Instructions .Route 0 09/23/24 .COMPLEX #270 tabs tizanidine 4 mg tablet 4 mg PO BID PRN Muscle Spasm #60 10/20/24 tabs potassium chloride 10 mEq 10 meq PO BID #180 caps 10/07 04/01 capsule,extended release amoxicillin 875 mg-potassium 1 tab PO BID #14 tabs 01/29 clavulanate 125 mg tablet Allergies Allergy/AdvReac Type Severity Reaction Status Date / Time insect venom Allergy Unknown Verified 11/11/24 18:56 bactrim Allergy rash Uncoded 11/11/24 18:56 Review of Systems Musc: Reports: extremity pain (R thumb); Denies: extremity swelling, joint pain or joint swelling Skin/Breast: Reports: other (laceration R thumb) Neuro: Denies: numbness in extremities or sensory changes PFSH ED PFSH: Medical History Hyperlipidemia Arachnoid cyst of posterior cranial fossa History of COVID-19 History of [place] (myocardial infarction) Cardiomegaly History of tobacco abuse Hypertension History of TIA (transient ischemic attack) History of diverticulitis Chronic low back pain Lumbar and sacral spondylarthritis Seasonal allergies CAD (coronary artery disease) History of colon polyps Surgical History History of arthroscopy of right knee History of lumbar surgery L4-L5 laminectomy H/O coronary angioplasty H/O neck surgery fusion due to 2 separate neck fractures History of back surgery discogram S/P insertion of spinal cord stimulator History of colonoscopy with polypectomy Family History Father CAD (coronary artery disease) Osteoarthritis Mother Cancer pancreatic Osteoarthritis Brother Cancer pancreatic Denies family history of Stroke Social History Smoking and tobacco/nicotine status: never used tobacco/nicotine Quit status (tobacco/nicotine): has quit using Year quit tobacco: 2008 Former quit date comment: 60 pack year Second hand smoke exposure: No Alcohol intake: never Substance/Drug Use: never Household members: significant other and children Marital status: Number of children: 6 Physical Exam Const: COMMON NORMALS: no acute distress, average body habitus, no limitations, healthy appearing, alert and well nourished Extremity: COMMON NORMALS: full ROM and capillary refill normal GENERAL: Yes normal exam except as noted RIGHT UPPER EXTREMITY: Yes hand & digits (small 1.25cm laceration to distal thumb; fairly superficial) Right hand and digits: Yes ROM exam (normal), Yes neurovascular exam (normal), Yes tendon exam (normal) and Yes other (no nail damage) Neuro: COMMON NORMALS: moves all extremities, no focal motor deficits and no sensory deficits noted SENSORIUM/ORIENTATION: Yes alert Skin: TRAUMA: laceration Procedures Laceration Laceration 1: Site: hand (R thumb) Side (If applicable): right Size (cm): 1.25 Description: linear Depth: simple, single layer Local Anesthetic: lidocaine 1% Amount of anesthesia used (mL): 1.0 Pre-repair: wound explored and irrigated extensively Skin layer closed with: nylon Size (cm): 5-0 Number of sutures: 3 Technique: simple, interrupted Course Vital Signs: Vital signs: Vital Signs Temperature 98.2 F 11/11/24 18:50 Pulse Rate 72 11/11/24 18:50 Respiratory Rate 16 11/11/24 18:50 Blood Pressure 140/101 11/11/24 18:50 Pulse Oximetry 95 11/11/24 18:50 Oxygen Delivery Me thod Room Air 11/11/24 18:50 MDM - Animal Bite Medical Decision Making Wound was copiously irrigated and repaired as documented. He will be placed on Augmentin. He was given tonight's dose prior to discharge. Tetanus was updated. Discussed recommendation for rabies PEP but patient declines. He states he would like to hold off to see if the animal is up-to-date on its rabies immunizations. Discussed that current guidelines would recommend that he go ahead and start rabies PEP today and that he can discontinue series if animal is up-to-date but patient would like to hold off altogether. Risks discussed. Wound care/infection precautions regarding his wound discussed as well. Differential Diagnosis Likely bite by animal and dog bite Medical Records I reviewed the patient's medical records. No radiology studies performed this visit Discharge Plan Discharge Patient Disposition: Home Clinical Impression: Dog bite of right thumb Condition: Stable Prescriptions: New amoxicillin-pot clavulanate 875-125 mg tablet 1 tab PO BID Qty: 14 0RF No Action aspirin 81 mg tablet,chewable 81 mg PO QDAY chromium picolinate 400 mcg tablet 800 mcg PO DAILY omega 7-wvy-jiu-fish oil [Fish Oil] 300-1,000 mg capsule 1 cap PO DAILY nitroglycerin [Nitrostat] 0.4 mg tablet, sublingual 0.4 mg SUBLINGUAL Q5M PRN (Reason: chest pain) Qty: 100 0RF epinephrine [EpiPen 2-Yeison] 0.3 mg/0.3 mL auto-injector 0.3 mg IM Q4H PRN (Reason: anaphylaxis) Qty: 2 0RF (DME) blood pressure cuff See Rx Instructions .Route .MEDSUPPLY Qty: 1 0RF Rx Instructions: As directed atorvastatin 40 mg tablet 40 mg PO DAILY Qty: 90 3RF gabapentin 800 mg tablet See Rx Instructions .ROUTE .COMPLEX Qty: 270 3RF Dose Instruction: TAKE 1 TABLET BY MOUTH THREE TIMES A DAY Rx Instructions: TAKE 1 TABLET BY MOUTH THREE TIMES A DAY tizanidine 4 mg tablet 4 mg PO BID PRN (Reason: Muscle Spasm) Qty: 60 0RF Rx Instructions: TAKE 1 TABLET BY MOUTH TWICE A DAY NEEDED potassium chloride 10 mEq capsule, extended release 10 meq PO BID Qty: 180 1RF meloxicam 15 mg tablet 15 mg PO DAILY Rx Instructions: TAKE 1 TABLET BY MOUTH EVERY DAY furosemide 20 mg tablet 30 mg PO QAM Rx Instructions: TAKE 1 & 1/2 TABLETS BY MOUTH IN THE MORNING Discharge Orders: Discharge ED (Routine); Ordered 11/11/24 Ordered By: Clara Rowland Referrals: Cynthia Alcazar MD [Primary Care Provider, [facility]] Patient Instructions: Animal Bite (ED) Activity Restrictions/Additional Instructions: Keep wound/laceration clean with warm soap and water twice daily. Monitor for signs of infection such as redness, swelling, increased pain, or drainage. Please seek medical re-evaluation if these occur. If you received sutures today these will need to be removed (unless you were told by the provider that they are absorbable). The provider should have discussed with you the length of time until removal-7 days. Tetanus was updated today. As we discussed, it was recommended you start rabies post exposure prophylaxis today but you have declined at this time. If the animal is not up-to-date on its rabies immunizations, it is recommended you start the series as soon as possible. Print Language: Ukrainian Coding Level of Care Code ED Furniture Builder for Jamila Dubose
[2024-11-11] MEDS: amoxicillin-clav 875-125 mg Tablet 1 TAB PO (19:22)
[2024-11-11] MEDS: tetanus-dipt-pertussis 0.5 mL SDV IM (19:22)
[2024-11-11 19:36] VITALS: BP 127/74; PULSE 79; O2SAT 96
== END 2024-11-11 19:39 | disposition home or self-care (01) ==
PROVIDERS: Emergency Provider Physician Assistant; PCP Family Medicine
DX: S61.051A Open bite of right thumb without damage to nail, initial encounter (principal); W54.0XXA Bitten by dog, initial encounter; Z79.82 Long term (current) use of aspirin; Z23 Encounter for immunization; Z87.891 Personal history of nicotine dependence; I25.10 Atherosclerotic heart disease of native coronary artery without angina pectoris; I10 Essential (primary) hypertension; Z86.73 Personal history of transient ischemic attack (TIA), and cerebral infarction without residual deficits; E78.5 Hyperlipidemia, unspecified
CPT/HCPCS: 12001; 90471; 90715; 99283; J9999

== ENCOUNTER 2024-11-16 11:26 | Emergency (ER) | payer MEDICARE, SELFPAY ==
[2024-11-16 11:38] VITALS: BP 160/93; PULSE 66; TEMP 36.6; O2SAT 95; BMI 32.1
--- NOTE | 2024-11-16 12:35 | W.ED.ANIMALB ---
HPI - Animal Bite General: Chief Complaint: Animal Bite Stated Complaint: dog bite, R thumb Time Seen by Provider: 11/16/24 11:57 Source: patient Mode of arrival: ambulatory Limitations: no limitations History of Present Illness: Patient is a nice 69-year-old male here for rabies post-exposure prophylaxis. He was seen by myself on 11/11 (5 days ago) following a dog bite to the right thumb. He has been taking his antibiotics as prescribed. His tetanus was updated at that visit. He was recommended to start rabies PEP then but he declined and wanted to hold off until he found out if the animal was up-to-date on rabies shots. He states he has not been able to find out any further information and the sheriff's sergeant's office recommended he come get the started. He states the wound to his right thumb seems to be healing well. complaint: animal bite Onset (ago): day(s) Animal: dog Mechanism: bite Associated symptoms: Reports no associated symptoms; Deny chills, fever(s) or headache(s) Related Data Home Medications ?Medication ?Instructions ?Recorded ?Confirmed aspirin 81 mg chewable tablet 81 mg PO QDAY 07/29/19 11/16/24 chromium picolinate 400 mcg tablet 800 mcg PO DAILY 07/27/24 11/16/24 furosemide 20 mg tablet 30 mg PO QAM 08/03/24 11/16/24 meloxicam 15 mg tablet 15 mg PO DAILY 08/03/24 11/16/24 celecoxib 100 mg capsule 100 mg PO DAILY 11/16/24 11/16/24 gabapentin 800 mg tablet 800 mg PO TID 11/16/24 Previous Rx's ?Medication ?Instructions ?Recorded epinephrine 0.3 mg/0.3 mL 0.3 mg (0.3 mL) IM Q4H PRN 04/04/22 injection, auto-injector (EpiPen anaphylaxis #2 ea 2-Yeison) nitroglycerin 0.4 mg sublingual 0.4 mg sublingual Q5M PRN chest 07/27/24 tablet (Nitrostat) pain #100 tabs atorvastatin 40 mg tablet 40 mg PO DAILY #90 tabs 08/27/24 tizanidine 4 mg tablet 4 mg PO BID PRN Muscle Spasm #60 10/20/24 tabs potassium chloride 10 mEq 10 meq PO BID #180 caps 11/03/24 capsule,extended release amoxicillin 875 mg-potassium 1 tab PO BID #14 tabs 11/11/24 clavulanate 125 mg tablet Allergies Allergy/AdvReac Type Severity Reaction Status Date / Time insect venom Allergy Unknown Verified 11/16/24 11:43 bactrim Allergy rash Uncoded 11/16/24 11:43 Review of Systems Const: Denies: fever(s), chills, body aches, fatigue or malaise GI: Denies: abdominal pain, vomiting or diarrhea Musc: Denies: extremity pain, extremity swelling, joint pain or joint swelling Skin/Breast: Reports: other (dog bite to R thumb is healing well) Neuro: Denies: headache(s), numbness in extremities or sensory changes PFSH ED PFSH: Medical History Hyperlipidemia Arachnoid cyst of posterior cranial fossa History of COVID-19 History of [place] (myocardial infarction) Cardiomegaly History of tobacco abuse Hypertension History of TIA (transient ischemic attack) History of diverticulitis Chronic low back pain Lumbar and sacral spondylarthritis Seasonal allergies CAD (coronary artery disease) History of colon polyps Surgical History History of arthroscopy of right knee History of lumbar surgery L4-L5 laminectomy H/O coronary angioplasty H/O neck surgery fusion due to 2 separate neck fractures History of back surgery discogram S/P insertion of spinal cord stimulator History of colonoscopy with polypectomy Family History Father CAD (coronary artery disease) Osteoarthritis Mother Cancer pancreatic Osteoarthritis Brother Cancer pancreatic Denies family history of Stroke Social History Smoking and tobacco/nicotine status: never used tobacco/nicotine Quit status (tobacco/nicotine): has quit using Year quit tobacco: 2008 Former quit date comment: 60 pack year Second hand smoke exposure: No Alcohol intake: never Substance/Drug Use: never Household members: significant other and children Marital status: Number of children: 6 Physical Exam Const: COMMON NORMALS: no acute distress, average body habitus, no limitations, healthy appearing, alert and well nourished Extremity: COMMON NORMALS: full ROM and capillary refill normal GENERAL: Yes normal exam except as noted RIGHT UPPER EXTREMITY: Yes hand & digits OTHER: dog bite to R thumb has healed well and sutures are ready to be removed-this was done by myself-3 sutures removed to R thumb no edema, streaking, drainage-wound is clean and well healed Neuro: SENSORIUM/ORIENTATION: Yes alert Course Vital Signs: Vital signs: Vital Signs Temperature 97.9 F 11/16/24 11:38 Pulse Rate 66 11/16/24 11:38 Blood Pressure 160/93 11/16/24 11:38 Pulse Oximetry 95 11/16/24 11:38 Oxygen Delivery Me thod Room Air 11/16/24 11:38 MDM - Animal Bite Medical Decision Making Recommend he continue what is left of his antibiotic course. Tetanus was updated on his last visit. He will have rabies PEP initiated today. He will be given a schedule at discharge for remainder of vaccinations. Medical Records I reviewed the patient's medical records. No radiology studies performed this visit Discharge Plan Discharge Patient Disposition: Home Clinical Impression: Need for post exposure prophylaxis for rabies, Encounter for removal of sutures Condition: Stable Prescriptions: No Action aspirin 81 mg tablet,chewable 81 mg PO QDAY chromium picolinate 400 mcg tablet 800 mcg PO DAILY nitroglycerin [Nitrostat] 0.4 mg tablet, sublingual 0.4 mg SUBLINGUAL Q5M PRN (Reason: chest pain) Qty: 100 0RF epinephrine [EpiPen 2-Yeison] 0.3 mg/0.3 mL auto-injector 0.3 mg IM Q4H PRN (Reason: anaphylaxis) Qty: 2 0RF atorvastatin 40 mg tablet 40 mg PO DAILY Qty: 90 3RF tizanidine 4 mg tablet 4 mg PO BID PRN (Reason: Muscle Spasm) Qty: 60 0RF Rx Instructions: TAKE 1 TABLET BY MOUTH TWICE A DAY NEEDED potassium chloride 10 mEq capsule, extended release 10 meq PO BID Qty: 180 1RF amoxicillin-pot clavulanate 875-125 mg tablet 1 tab PO BID Qty: 14 0RF celecoxib 100 mg capsule 100 mg PO DAILY gabapentin 800 mg tablet 800 mg PO TID Rx Instructions: TAKE 1 TABLET BY MOUTH THREE TIMES A DAY meloxicam 15 mg tablet 15 mg PO DAILY Rx Instructions: TAKE 1 TABLET BY MOUTH EVERY DAY furosemide 20 mg tablet 30 mg PO QAM Rx Instructions: TAKE 1 & 1/2 TABLETS BY MOUTH IN THE MORNING Discharge Orders: Discharge ED (Routine); Ordered 11/16/24 Ordered By: Clara Rowland Referrals: Cynthia Alcazar MD [Primary Care Provider, Family Practice] Patient Instructions: Rabies Vaccine (By injection), Rabies Immune Globulin (By injection) Activity Restrictions/Additional Instructions: As we discussed, finish what is left of your antibiotic course. You should have been given a schedule for the remainder of your rabies post-exposure prophylaxis series vaccinations. These are scheduled through our infusion center. You may also contact your primary care office to see if they carry these shots. Print Language: Qatari Coding Level of Care Code ED Poultry Helper for Jamila Dubose
[2024-11-16] MEDS: rabies IG 300 unit/mL SDV 1 mL 2100 UNIT IM (13:00)
[2024-11-16] MEDS: rabies vaccine 2.5 unit SDV IM (13:01)
== END 2024-11-16 13:14 | disposition home or self-care (01) ==
PROVIDERS: Emergency Provider Physician Assistant; PCP Family Medicine
DX: Z20.3 Contact with and (suspected) exposure to rabies (principal); Z29.14 Encounter for prophylactic rabies immune globulin; Z48.02 Encounter for removal of sutures; Z79.82 Long term (current) use of aspirin; Z87.891 Personal history of nicotine dependence; E78.5 Hyperlipidemia, unspecified; I25.10 Atherosclerotic heart disease of native coronary artery without angina pectoris; Z86.73 Personal history of transient ischemic attack (TIA), and cerebral infarction without residual deficits
CPT/HCPCS: 90375; 90471; 90675; 96372; 99283

== ENCOUNTER 2024-12-01 07:45 | Oncology outpatient (recurring) (ONCR) | payer MEDICARE, SELFPAY ==
[2024-11-19] MEDS: rabies vaccine 2.5 unit SDV IM (08:04)
[2024-11-23] MEDS: rabies vaccine 2.5 unit SDV IM (07:34)
[2024-12-01] MEDS: rabies vaccine 2.5 unit SDV IM (07:47)
== END 2024-12-05 23:59 | disposition home or self-care (01) ==
PROVIDERS: PCP Family Medicine; Visit Provider Physician Assistant
DX: Z53.9 Procedure and treatment not carried out, unspecified reason (principal); Z29.14 Encounter for prophylactic rabies immune globulin; Z20.3 Contact with and (suspected) exposure to rabies; Z23 Encounter for immunization
CPT/HCPCS: 90471; 90675